=== PATIENT | male | born 1930 | race Caucasian/White ===

== ENCOUNTER 2018-06-28 11:42 | Inpatient (IN) ==
--- NOTE | 2018-06-28 11:58 | Emergency Department Note ---
Disposition Clinical Impression: Pancytopenia, Neutropenia, Weakness, Risk for falls Disposition: Admitted As Inpatient Condition: Fair Referrals: Scott Marcano MD [Partnered Physician] - Forms: ED Satisfaction Letter Time of Disposition: 18:24 General Adult HPI - General Chief complaint: ED Shortness of Breath/Dyspnea Stated complaint: Abnormal labs,TOMEKA Time Seen by Provider: 06/28/18 11:56 Nursing Notes Reviewed: Yes Vital Signs Reviewed: Yes - History of Present Illness HPI Narrative: 87-year-old male presents from oncology office for continued evaluation. Patient has been feeling progressively weak over the last 4 days. He now has profound dyspnea with ambulation. Mild dyspnea at rest. He aches from head to toe. Patient has had a 5-6 month history of falling white blood cell count. He had his first appointment with oncology this morning; his oncologist became concern for multiple possible etiologies and referred him to the emergency department for workup. PMH: Type 2 diabetes on oral anti-hyperglycemics, BPH, hypertension, hyperlipidemia, history of unstable angina with stent 2 ROS: Positive: As above. Subjective fever yesterday afternoon. Negative: Diaphoresis, chest pain, palpitations, abdominal pain, hematuria, melena, hematochezia, dysuria, hematemesis, cough Pain Scale: 8 - Related Data Home Medications Medication Instructions Recorded Confirmed Aspirin [Adult Low Dose Aspirin EC] 81 mg PO DAILY 02/27/16 06/28/18 Omeprazole [PriLOSEC] 40 mg PO DAILY 02/27/16 06/28/18 Simvastatin [Zocor] 40 mg PO HS 02/27/16 06/28/18 amLODIPine [Norvasc] 10 mg PO DAILY 02/27/16 06/28/18 glipiZIDE [Glipizide] 10 mg PO BID 02/27/16 06/28/18 metFORMIN [Glucophage] 1,000 mg PO QAM 02/27/16 06/28/18 Metoprolol Succinate [Toprol Xl] 50 mg PO DAILY 03/05/18 06/28/18 Nitroglycerin [Nitrostat] 0.4 mg SL DAILY 03/05/18 06/28/18 metFORMIN [Glucophage] 1,000 mg PO QPM 03/05/18 06/28/18 Isosorbide MONOnitrate [Isosorbide 30 mg PO DAILY 06/28/18 06/28/18 Mononitrate] Tamsulosin HCl [Flomax] 0.4 mg PO DAILY 06/28/18 06/28/18 Venlafaxine HCl 50 mg PO DAILY 06/28/18 06/28/18 metFORMIN [Glucophage] 500 mg PO QPM 06/28/18 06/28/18 Allergies Allergy/AdvReac Type Severity Reaction Status Date / Time Penicillins Allergy Hives Verified 06/28/18 12:14 All systems ED: reviewed and negative except as stated. Review of Systems: As Per HPI Past Medical History - Past Medical History Medical history: Reports: CVA, diabetes, GERD, hyperlipidemia, hypertension Psychiatric history: Reports: depression - Social History Smoking Status: Former smoker Smokeless Tobacco Status: No Alcohol use: Reports: rarely Drug use: Reports: none Physical Exam Vital Signs Reviewed General: Patient is alert, oriented, and in no acute distress. Head: atraumatic, normocephalic Eye: normal appearance, PERRL, EOMI, no scleral icterus, no conjunctival injection. Conjunctiva pale. Gingiva pale. ENT: mucous membranes moist, normal external ear exam Neck: normal inspection, trachea midline, full ROM Chest: normal inspection, symmetric chest rise Respiratory: Good respiratory effort. Bilateral breath sounds are clear without wheezing, crackles, or rhonchi. Cardiovascular: Regular rate and rhythm. No clicks, rubs, gallops, or murmors. Normal heart sounds. Bilateral posterior tibial and radial pulses 2/4 and equal. No pedal edema. Abdomen: Bowel sounds present normoactive x-4 quadrants. Abdomen is soft, nondistended, and nontender. No guarding or rebound. No organomegaly noted. Musculoskeletal: Spontaneously moving all extremities. Skin: warm, dry, intact. Neuro: Alert and oriented x4. Sensation light touch intact. Psych: Patient's affect is appropriate for situation. Course Course Narrative: Cardiac catheter 03/2018: Indications: Unstable Angina Impressions: Double vessel coronary artery disease. Previously stented RCA patent. The left ventricle is normal and has normal contractility EF 60% Recommendations: Optimal medical therapy of patient's disease. Aggressive risk factor modification. History/Risk Factors: anxiety depression gout BPH CVA 2014 Diabetes Hypertension Previous PCI EKG dated 06/28/2018 at 12:14 interpreted as atrial fibrillation with a rate of 102. Normal axis. FL 138. QTC 494. Nonspecific ST-T changes. Right bundle branch block. Compared to previous EKG dated 12/23/2016 showing no acute extremity changes in comparison. Patient is pancytopenic with white blood cell count of 1; absolute neutrophil count of 14. No current evidence of infection. Chest x-ray is unremarkable. Patient has no urinary complaints. He no preceding URI symptoms, no abdominal pain or change in bowel habits, and no fevers. Concern for blood dyscrasia is high given lack of infectious signs or symptoms as well as history of his white blood cell count dwindling for the past 6 months with no intervention by his primary care provider. Discussed the patient with credit and loan collections supervisor oncology who also discussed the patient with Dr. Loay, [facility]. We discussed the patient's pancytopenia and lack of evidence of infectious etiology. Cluster concern is a blood dyscrasia. Interventional radiology is not available on the weekend for bone marrow biopsy at this facility. Collectively, we do not wish for the patient to wait until Sunday for bone marrow biopsy. We agree the patient would best be served by transfer to a higher level facility with interventional radiology availability over the weekend for a more rapid bone marrow biopsy and diagnosis of his pancytopenia and low absolute neutrophil count. Discussed the patient with oncology fellow at [facility], Dr. Coyle. After discussing the patient's clinical picture and my workup thus far, patient would not be able to receive a bone marrow biopsy until Sunday at their facility either. We discussed additional appropriate studies to be ordered. We discussed the patient safely staying at this hospital with our oncology following. Discussed the patient with [facility], Dr. Loya. She also spoke with Dr. Coyle. She is agreeable to keeping the patient at this facility for valuation of his weakness and fall risk as well as continued evaluation of his pancytopenia. Discussed the patient with the admitting hospitalist, Dr. Loya, who agrees to accept the patient with oncology following. Chest X-Ray 06/28/18 12:23 IMPRESSION: Stable appearance of the chest without acute cardiopulmonary process identified. D/ / Coy Young MD / Coy Young MD Interpreting Provider: Coy Young MD Vital Signs Temperature 98.5 F 06/28/18 11:46 Pulse Rate 100 06/28/18 11:46 Respiratory Rate 16 06/28/18 11:46 Blood Pressure 131/75 06/28/18 11:46 O2 Sat by Pulse Oximetry 99 06/28/18 11:46 Temperature 98.5 F 06/28/18 12:20 Pulse Rate 102 06/28/18 14:11 Respiratory Rate 20 06/28/18 14:11 Blood Pressure 126/79 06/28/18 14:11 O2 Sat by Pulse Oximetry 95 06/28/18 14:11 Oxygen Delivery Oxygen Delivery Room Air Medical Decision Making - Lab Data Result diagrams: 06/28/18 13:45 06/28/18 12:29 Lab Results 06/28/18 06/28/18 06/28/18 Range/Units 12:29 12:29 12:29 WBC (4.3-11.1) K/mcL RBC (4.19-5.50) M/mcL Hgb (12.9-16.9) g/dL Hct (37.5-50.1) % MCV (83.0-100.0) fL MCH (28.0-33.3) pg MCHC (31.6-35.5) g/dL RDW (11.5-14.5) % Plt Count (140-400) K/mcL MPV (9.4-12.4) fL Reticulocyte # (0.05-0.10) M/mcL Immature Gran % (0-4) % Seg Neutrophils % % Lymphocytes % % Monocytes % % Eosinophils % % Basophils % % Neutrophils # (1.6-8.9) K/mcL Lymphocytes # (0.6-4.6) K/mcL Monocytes # (0.0-1.3) K/mcL Eosinophils # (0.0-0.6) K/mcL Basophils # (0.0-0.2) K/mcL Nucleated RBCs/100 WBC (0) /100 WBC Immature Plt Fraction (1.1-6.1) % Smear Path Review Percent Retic (1.6-2.8) % Immature Retic Fraction (11.0-38.0) % Retic Hgb Equivalent (28.61-36.33) pg PT (9.4-12.1) Seconds INR Sodium 131 L (136-145) mEq/L Potassium 4.0 (3.5-5.1) mEq/L Chloride 98 (98-107) mEq/L Carbon Dioxide 18 L (23-29) mEq/L BUN 15 (8-23) mg/dL Creatinine 0.91 (0.70-1.30) mg/dL Est GFR ( Amer) > 60 (> 60) Est GFR (Non-Af Amer) > 60 (> 60) BUN/Creatinine Ratio 16 (6-26) Glucose 257 H (70-105) mg/dL Calculated Osmolality 282 (280-300) Lactic Acid 1.8 (0.5-2.2) mmol/L Uric Acid 6.0 (2.3-7.6) mg/dL Calcium 9.3 (8.6-10.3) mg/dL Total Bilirubin 1.1 H (0.3-1.0) mg/dL Direct Bilirubin 0.2 (0.0-0.2) mg/dL Indirect Bilirubin 0.9 (0.0-1.2) mg/dL AST 14 (13-39) Units/L ALT 13 (7-52) Units/L Alkaline Phosphatase 42 (34-104) Units/L Lactate Dehydrogenase (140-271) Units/L Troponin I < 0.03 (< 0.04) ng/mL B-Natriuretic Peptide 159 H (Less than 100) pg/mL Serum Total Protein 7.4 (6.4-8.9) g/dL Albumin 4.0 (3.5-5.7) g/dL Globulin 3.4 (2.4-3.5) g/dL Albumin/Globulin Ratio 1.2 (1.1-2.2) Specimen Rejected 06/28/18 06/28/18 06/28/18 Range/Units 13:27 13:45 17:35 WBC 1.0 L* (4.3-11.1) K/mcL RBC 2.86 L (4.19-5.50) M/mcL Hgb 9.3 L (12.9-16.9) g/dL Hct 27.8 L (37.5-50.1) % MCV 97.2 (83.0-100.0) fL MCH 32.5 (28.0-33.3) pg MCHC 33.5 (31.6-35.5) g/dL RDW 18.1 H (11.5-14.5) % Plt Count 83 L (140-400) K/mcL MPV 10.7 (9.4-12.4) fL Reticulocyte # (0.05-0.10) M/mcL Immature Gran % 1.0 (0-4) % Seg Neutrophils % 43.1 % Lymphocytes % 49.0 % Monocytes % 6.9 % Eosinophils % 0.0 % Basophils % 0.0 % Neutrophils # 0.4 L (1.6-8.9) K/mcL Lymphocytes # 0.5 L (0.6-4.6) K/mcL Monocytes # 0.1 (0.0-1.3) K/mcL Eosinophils # 0.0 (0.0-0.6) K/mcL Basophils # 0.0 (0.0-0.2) K/mcL Nucleated RBCs/100 WBC 2.0 H (0) /100 WBC Immature Plt Fraction 4.4 (1.1-6.1) % Smear Path Review See Below Percent Retic (1.6-2.8) % Immature Retic Fraction (11.0-38.0) % Retic Hgb Equivalent (28.61-36.33) pg PT 16.1 H (9.4-12.1) Seconds INR 1.4 Sodium (136-145) mEq/L Potassium (3.5-5.1) mEq/L Chloride (98-107) mEq/L Carbon Dioxide (23-29) mEq/L BUN (8-23) mg/dL Creatinine (0.70-1.30) mg/dL Est GFR ( Amer) (> 60) Est GFR (Non-Af Amer) (> 60) BUN/Creatinine Ratio (6-26) Glucose (70-105) mg/dL Calculated Osmolality (280-300) Lactic Acid (0.5-2.2) mmol/L Uric Acid (2.3-7.6) mg/dL Calcium (8.6-10.3) mg/dL Total Bilirubin (0.3-1.0) mg/dL Direct Bilirubin (0.0-0.2) mg/dL Indirect Bilirubin (0.0-1.2) mg/dL AST (13-39) Units/L ALT (7-52) Units/L Alkaline Phosphatase (34-104) Units/L Lactate Dehydrogenase (140-271) Units/L Troponin I (< 0.04) ng/mL B-Natriuretic Peptide (Less than 100) pg/mL Serum Total Protein (6.4-8.9) g/dL Albumin (3.5-5.7) g/dL Globulin (2.4-3.5) g/dL Albumin/Globulin Ratio (1.1-2.2) Specimen Rejected Clotted 06/28/18 06/28/18 Range/Units 17:35 17:35 WBC (4.3-11.1) K/mcL RBC (4.19-5.50) M/mcL Hgb (12.9-16.9) g/dL Hct (37.5-50.1) % MCV (83.0-100.0) fL MCH (28.0-33.3) pg MCHC (31.6-35.5) g/dL RDW (11.5-14.5) % Plt Count (140-400) K/mcL MPV (9.4-12.4) fL Reticulocyte # 0.08 (0.05-0.10) M/mcL Immature Gran % (0-4) % Seg Neutrophils % % Lymphocytes % % Monocytes % % Eosinophils % % Basophils % % Neutrophils # (1.6-8.9) K/mcL Lymphocytes # (0.6-4.6) K/mcL Monocytes # (0.0-1.3) K/mcL Eosinophils # (0.0-0.6) K/mcL Basophils # (0.0-0.2) K/mcL Nucleated RBCs/100 WBC (0) /100 WBC Immature Plt Fraction (1.1-6.1) % Smear Path Review Percent Retic 2.8 (1.6-2.8) % Immature Retic Fraction 28.2 (11.0-38.0) % Retic Hgb Equivalent 35.3 (28.61-36.33) pg PT (9.4-12.1) Seconds INR Sodium (136-145) mEq/L Potassium (3.5-5.1) mEq/L Chloride (98-107) mEq/L Carbon Dioxide (23-29) mEq/L BUN (8-23) mg/dL Creatinine (0.70-1.30) mg/dL Est GFR ( Amer) (> 60) Est GFR (Non-Af Amer) (> 60) BUN/Creatinine Ratio (6-26) Glucose (70-105) mg/dL Calculated Osmolality (280-300) Lactic Acid (0.5-2.2) mmol/L Uric Acid (2.3-7.6) mg/dL Calcium (8.6-10.3) mg/dL Total Bilirubin (0.3-1.0) mg/dL Direct Bilirubin (0.0-0.2) mg/dL Indirect Bilirubin (0.0-1.2) mg/dL AST (13-39) Units/L ALT (7-52) Units/L Alkaline Phosphatase (34-104) Units/L Lactate Dehydrogenase 260 (140-271) Units/L Troponin I (< 0.04) ng/mL B-Natriuretic Peptide (Less than 100) pg/mL Serum Total Protein (6.4-8.9) g/dL Albumin (3.5-5.7) g/dL Globulin (2.4-3.5) g/dL Albumin/Globulin Ratio (1.1-2.2) Specimen Rejected
--- NOTE | 2018-06-28 13:23 | Emergency Department Note ---
Disposition Clinical Impression: Pancytopenia, Neutropenia, Weakness, Risk for falls Disposition: Admitted As Inpatient Condition: Fair Referrals: Scott Marcano MD [Partnered Physician] - Forms: ED Satisfaction Letter General Adult HPI - General Chief complaint: ED Shortness of Breath/Dyspnea Stated complaint: Abnormal labs,TOMEKA Time Seen by Provider: 06/28/18 11:56 Source: patient Limitations: no limitations - History of Present Illness Pain Scale: 8 - Related Data Home Medications Medication Instructions Recorded Confirmed Aspirin [Adult Low Dose Aspirin EC] 81 mg PO DAILY 02/27/16 06/28/18 Omeprazole [PriLOSEC] 40 mg PO DAILY 02/27/16 06/28/18 Simvastatin [Zocor] 40 mg PO HS 02/27/16 06/28/18 amLODIPine [Norvasc] 10 mg PO DAILY 02/27/16 06/28/18 glipiZIDE [Glipizide] 10 mg PO BID 02/27/16 06/28/18 metFORMIN [Glucophage] 1,000 mg PO QAM 02/27/16 06/28/18 Metoprolol Succinate [Toprol Xl] 50 mg PO DAILY 03/05/18 06/28/18 Nitroglycerin [Nitrostat] 0.4 mg SL DAILY 03/05/18 06/28/18 metFORMIN [Glucophage] 1,000 mg PO QPM 03/05/18 06/28/18 Isosorbide MONOnitrate [Isosorbide 30 mg PO DAILY 06/28/18 06/28/18 Mononitrate] Tamsulosin HCl [Flomax] 0.4 mg PO DAILY 06/28/18 06/28/18 Venlafaxine HCl 50 mg PO DAILY 06/28/18 06/28/18 metFORMIN [Glucophage] 500 mg PO QPM 06/28/18 06/28/18 Allergies Allergy/AdvReac Type Severity Reaction Status Date / Time Penicillins Allergy Hives Verified 06/28/18 12:14 Past Medical History - Past Medical History Medical history: Reports: CVA, diabetes, GERD, hyperlipidemia, hypertension Psychiatric history: Reports: depression - Social History Smoking Status: Former smoker Smokeless Tobacco Status: No Alcohol use: Reports: rarely Drug use: Reports: none Physical Exam - General Limitations: no limitations General appearance: alert Course Vital Signs Temperature 98.5 F 06/28/18 11:46 Pulse Rate 100 06/28/18 11:46 Respiratory Rate 16 06/28/18 11:46 Blood Pressure 131/75 06/28/18 11:46 O2 Sat by Pulse Oximetry 99 06/28/18 11:46 Temperature 98.5 F 06/28/18 12:20 Pulse Rate 102 06/28/18 14:11 Respiratory Rate 20 06/28/18 14:11 Blood Pressure 126/79 06/28/18 14:11 O2 Sat by Pulse Oximetry 95 06/28/18 14:11 Oxygen Delivery Oxygen Delivery Room Air Medical Decision Making - Lab Data Result diagrams: 06/28/18 13:45 06/28/18 12:29 Lab Results 06/28/18 06/28/18 06/28/18 Range/Units 12:29 12:29 12:29 WBC (4.3-11.1) K/mcL RBC (4.19-5.50) M/mcL Hgb (12.9-16.9) g/dL Hct (37.5-50.1) % MCV (83.0-100.0) fL MCH (28.0-33.3) pg MCHC (31.6-35.5) g/dL RDW (11.5-14.5) % Plt Count (140-400) K/mcL MPV (9.4-12.4) fL Reticulocyte # (0.05-0.10) M/mcL Immature Gran % (0-4) % Seg Neutrophils % % Lymphocytes % % Monocytes % % Eosinophils % % Basophils % % Neutrophils # (1.6-8.9) K/mcL Lymphocytes # (0.6-4.6) K/mcL Monocytes # (0.0-1.3) K/mcL Eosinophils # (0.0-0.6) K/mcL Basophils # (0.0-0.2) K/mcL Nucleated RBCs/100 WBC (0) /100 WBC Immature Plt Fraction (1.1-6.1) % Smear Path Review Percent Retic (1.6-2.8) % Immature Retic Fraction (11.0-38.0) % Retic Hgb Equivalent (28.61-36.33) pg PT (9.4-12.1) Seconds INR Sodium 131 L (136-145) mEq/L Potassium 4.0 (3.5-5.1) mEq/L Chloride 98 (98-107) mEq/L Carbon Dioxide 18 L (23-29) mEq/L BUN 15 (8-23) mg/dL Creatinine 0.91 (0.70-1.30) mg/dL Est GFR ( Amer) > 60 (> 60) Est GFR (Non-Af Amer) > 60 (> 60) BUN/Creatinine Ratio 16 (6-26) Glucose 257 H (70-105) mg/dL Calculated Osmolality 282 (280-300) Lactic Acid 1.8 (0.5-2.2) mmol/L Uric Acid 6.0 (2.3-7.6) mg/dL Calcium 9.3 (8.6-10.3) mg/dL Total Bilirubin 1.1 H (0.3-1.0) mg/dL Direct Bilirubin 0.2 (0.0-0.2) mg/dL Indirect Bilirubin 0.9 (0.0-1.2) mg/dL AST 14 (13-39) Units/L ALT 13 (7-52) Units/L Alkaline Phosphatase 42 (34-104) Units/L Troponin I < 0.03 (< 0.04) ng/mL B-Natriuretic Peptide 159 H (Less than 100) pg/mL Serum Total Protein 7.4 (6.4-8.9) g/dL Albumin 4.0 (3.5-5.7) g/dL Globulin 3.4 (2.4-3.5) g/dL Albumin/Globulin Ratio 1.2 (1.1-2.2) Specimen Rejected 06/28/18 06/28/18 06/28/18 Range/Units 13:27 13:45 17:35 WBC 1.0 L* (4.3-11.1) K/mcL RBC 2.86 L (4.19-5.50) M/mcL Hgb 9.3 L (12.9-16.9) g/dL Hct 27.8 L (37.5-50.1) % MCV 97.2 (83.0-100.0) fL MCH 32.5 (28.0-33.3) pg MCHC 33.5 (31.6-35.5) g/dL RDW 18.1 H (11.5-14.5) % Plt Count 83 L (140-400) K/mcL MPV 10.7 (9.4-12.4) fL Reticulocyte # (0.05-0.10) M/mcL Immature Gran % 1.0 (0-4) % Seg Neutrophils % 43.1 % Lymphocytes % 49.0 % Monocytes % 6.9 % Eosinophils % 0.0 % Basophils % 0.0 % Neutrophils # 0.4 L (1.6-8.9) K/mcL Lymphocytes # 0.5 L (0.6-4.6) K/mcL Monocytes # 0.1 (0.0-1.3) K/mcL Eosinophils # 0.0 (0.0-0.6) K/mcL Basophils # 0.0 (0.0-0.2) K/mcL Nucleated RBCs/100 WBC 2.0 H (0) /100 WBC Immature Plt Fraction 4.4 (1.1-6.1) % Smear Path Review See Below Percent Retic (1.6-2.8) % Immature Retic Fraction (11.0-38.0) % Retic Hgb Equivalent (28.61-36.33) pg PT 16.1 H (9.4-12.1) Seconds INR 1.4 Sodium (136-145) mEq/L Potassium (3.5-5.1) mEq/L Chloride (98-107) mEq/L Carbon Dioxide (23-29) mEq/L BUN (8-23) mg/dL Creatinine (0.70-1.30) mg/dL Est GFR ( Amer) (> 60) Est GFR (Non-Af Amer) (> 60) BUN/Creatinine Ratio (6-26) Glucose (70-105) mg/dL Calculated Osmolality (280-300) Lactic Acid (0.5-2.2) mmol/L Uric Acid (2.3-7.6) mg/dL Calcium (8.6-10.3) mg/dL Total Bilirubin (0.3-1.0) mg/dL Direct Bilirubin (0.0-0.2) mg/dL Indirect Bilirubin (0.0-1.2) mg/dL AST (13-39) Units/L ALT (7-52) Units/L Alkaline Phosphatase (34-104) Units/L Troponin I (< 0.04) ng/mL B-Natriuretic Peptide (Less than 100) pg/mL Serum Total Protein (6.4-8.9) g/dL Albumin (3.5-5.7) g/dL Globulin (2.4-3.5) g/dL Albumin/Globulin Ratio (1.1-2.2) Specimen Rejected Clotted 06/28/18 Range/Units 17:35 WBC (4.3-11.1) K/mcL RBC (4.19-5.50) M/mcL Hgb (12.9-16.9) g/dL Hct (37.5-50.1) % MCV (83.0-100.0) fL MCH (28.0-33.3) pg MCHC (31.6-35.5) g/dL RDW (11.5-14.5) % Plt Count (140-400) K/mcL MPV (9.4-12.4) fL Reticulocyte # 0.08 (0.05-0.10) M/mcL Immature Gran % (0-4) % Seg Neutrophils % % Lymphocytes % % Monocytes % % Eosinophils % % Basophils % % Neutrophils # (1.6-8.9) K/mcL Lymphocytes # (0.6-4.6) K/mcL Monocytes # (0.0-1.3) K/mcL Eosinophils # (0.0-0.6) K/mcL Basophils # (0.0-0.2) K/mcL Nucleated RBCs/100 WBC (0) /100 WBC Immature Plt Fraction (1.1-6.1) % Smear Path Review Percent Retic 2.8 (1.6-2.8) % Immature Retic Fraction 28.2 (11.0-38.0) % Retic Hgb Equivalent 35.3 (28.61-36.33) pg PT (9.4-12.1) Seconds INR Sodium (136-145) mEq/L Potassium (3.5-5.1) mEq/L Chloride (98-107) mEq/L Carbon Dioxide (23-29) mEq/L BUN (8-23) mg/dL Creatinine (0.70-1.30) mg/dL Est GFR ( Amer) (> 60) Est GFR (Non-Af Amer) (> 60) BUN/Creatinine Ratio (6-26) Glucose (70-105) mg/dL Calculated Osmolality (280-300) Lactic Acid (0.5-2.2) mmol/L Uric Acid (2.3-7.6) mg/dL Calcium (8.6-10.3) mg/dL Total Bilirubin (0.3-1.0) mg/dL Direct Bilirubin (0.0-0.2) mg/dL Indirect Bilirubin (0.0-1.2) mg/dL AST (13-39) Units/L ALT (7-52) Units/L Alkaline Phosphatase (34-104) Units/L Troponin I (< 0.04) ng/mL B-Natriuretic Peptide (Less than 100) pg/mL Serum Total Protein (6.4-8.9) g/dL Albumin (3.5-5.7) g/dL Globulin (2.4-3.5) g/dL Albumin/Globulin Ratio (1.1-2.2) Specimen Rejected Critical Care Time Critical Care Time: No Attestation Statement - Attestation Attestation: I examined this patient and my medical decision-making was reviewed with the Resident Physician. I agree with the documented findings, disposition and treatment plan as described except to the extent set forth below. 87-year-old male got sent to the emergency room from hematology office for shortness of breath and diffuse myalgias and arthralgias and pancytopenia. Patient is been feeling ill for a while. Getting more and more short of breath. Was told his white blood cell count was 1. He denies any blood in his stool. He does appear pale and weak. We did call hematology who preferred the patient be admitted for further workup of pancytopenia and a consult to them. Patient was also recently diagnosed with COPD and emphysema which could be contributing to his sob will recheck labs admit [facility] does not feel he needs to be tx'd there as they can't do a bone marrow biopsy until sunday either. will attempt to readmit here. 1) pancytopenia--needs hematologic work up 2)copd--needs followed no critical care time
[2018-06-28 13:34] LABS: Troponin I < 0.03 ng/mL (< 0.04)
[2018-06-28 14:27] LABS: Alanine Aminotransferase 13 Units/L (7-52); Albumin/Globulin Ratio 1.2 (1.1-2.2); Alkaline Phosphatase 42 Units/L (34-104); Aspartate Amino Transferase 14 Units/L (13-39); BUN/Creatinine Ratio 16 (6-26); Bilirubin,Direct 0.2 mg/dL (0.0-0.2); Bilirubin,Indirect 0.9 mg/dL (0.0-1.2); Bilirubin,Total 1.1 mg/dL (0.3-1.0); Blood Urea Nitrogen 15 mg/dL (8-23); Calcium 9.3 mg/dL (8.6-10.3); Carbon Dioxide 18 mEq/L (23-29); Chloride 98 mEq/L (98-107); Globulin 3.4 g/dL (2.4-3.5); Glucose 257 mg/dL (70-105); Osmolality,Calculated 282 (280-300); Sodium 131 mEq/L (136-145); Total Protein 7.4 g/dL (6.4-8.9); eGFR For Non-African Americans > 60 (> 60)
[2018-06-28 15:05] LABS: Hematocrit 27.8 % (37.5-50.1); Hemoglobin 9.3 g/dL (12.9-16.9); Immature Platelets 4.4 % (1.1-6.1); Lymphocytes # 0.5 K/mcL (0.6-4.6); Mean Corpuscular HGB Conc 33.5 g/dL (31.6-35.5); Mean Corpuscular Hemoglobin 32.5 pg (28.0-33.3); Mean Corpuscular Volume 97.2 fL (83.0-100.0); Mean Platelet Volume 10.7 fL (9.4-12.4); Monocytes # 0.1 K/mcL (0.0-1.3); Monocytes % 6.9 %; Neutrophils # 0.4 K/mcL (1.6-8.9); Red Blood Count 2.86 M/mcL (4.19-5.50); Red Cell Distribution Width 18.1 % (11.5-14.5); Segmented Neutrophils % 43.1 %
[2018-06-28 15:32] LABS: Platelet Count 83 K/mcL (140-400)
[2018-06-28 17:56] LABS: Immature Reticulocyte % 28.2 % (11.0-38.0); Retculocyte # 0.08 M/mcL (0.05-0.10); Reticulocyte % 2.8 % (1.6-2.8)
[2018-06-28 18:00] LABS: INR 1.4; Prothrombin Time 16.1 Seconds (9.4-12.1)
[2018-06-28 18:21] LABS: Lactate Dehydrogenase 260 Units/L (140-271)
[2018-06-28 18:39] LABS: Ferritin 522 ng/mL (20-250)
[2018-06-28] MEDS ORDERED: 0.9 % Sodium Chloride 1,000 ML IVC ONE ×2 (19:45→21:43)
[2018-06-28] MEDS ORDERED: Naloxone 0.4 MG/ML INJ IVP PRN (20:13)
[2018-06-28] MEDS ORDERED: D5% in Water 1,000 ML IVC PRN (20:19)
[2018-06-28] MEDS ORDERED: *HR* Dextrose 50 % in Water (Syg) 50 ML SYRINGE IVP PRN (20:19)
[2018-06-28] MEDS ORDERED: Dextrose Gel 15 GM/37.5 ML TUBE PO PRN ×2 (20:19)
--- NOTE | 2018-06-28 20:29 | Internal Med History&Physical ---
<Renato Bustos - Last Filed: 06/28/18 22:25> Date of Encounter: 06/28/18 Time of Encounter: 20:29 Internal Medicine - H&P: HPI Chief complaint: sent from onc, SOB Admitted From: Emergency Dept Plans for Post Hospital Care: Home History of present illness: Mr. Harris is a 87 year old male with past medical history of CVA, diabetes, GERD , hypertension, hyperlipidemia, hypertension, depression who presents to emergency department from oncology office with complaint of pancytopenia as well as progressive shortness of breath. Patient states that his symptoms of weakness and shortness of breath present for approximately past 4 weeks. They have been getting progressively worse. SOB exacerbated with exertion and partially relieved with rest. He is also been having a workup with his primary care physician since February of this year. There was his first visit with the oncologist who recommended he presented to emergency department due to shortness of breath and pancytopenia. He states he has been feeling feverish and chills over the past 24 hours but denies any symptoms of cough, congestion, runny nose, abdominal pain, changes in bowel movements, dysuria. He has not been measuring these fevers. He does have also have complaints of nausea, urinary frequency however he does think this is related to his BPH. Denies symptoms of orthopnea and states he has very minimal lower extremity swelling bilaterally. He does state he has occasional anginal chest pain however he is not having it at this time. He does state that he has had an EGD and colonoscopy performed in the past. EGD was multiple years ago and he reports negative findings. Colonoscopy performed last year he reportedly found upwards of 60 polyps that were removed and reports complication of rectal prolapse. In the emergency department, vital signs on presentation significant for heart rate of 100, blood pressure 131/75 he was saturating 99% on room air. It is noted however that during his stay he became increasingly tachycardic with a rate reaching the 130s and his respiratory rate also increased to the high 20s. It was noted that his oxygen saturation maintained in the mid 90s. At that time a 1 L bolus of normal saline was initiated. Laboratory results were significant for a WBC of 1.0, H/H of 9.3/27.8, platelets 83, blood sugar 257, lactic acid 1.8. Chest x-ray was obtained and was negative for acute process. Originally, patient was considering transferring to [facility] for need of a bone biopsy however [facility] stated that a bone biopsy would not likely be performed until Sunday at which time it can be done here. Oncology was consult emergency department and will see the patient in the morning. Past medical history as above Past surgical history includes orthopedic Social history: Former smoker quitting 60 years ago, denies alcohol or drug use Family history: Skin for cardiac disease in his father as well as lung cancer for which he eventually passed. Past Med Surg Social Fam HX - Past Medical History Medical history: CVA, diabetes, GERD, hyperlipidemia, hypertension Additional medical history: leukopenia Psychiatric history: depression - Past Surgical History Additional surgical history: laminectomy. hemorrhoidectomy. tonsillectomy. right heel spur removal. heart stents x2 - Social History Smoking Status: Former smoker Smokeless Tobacco Status: No Alcohol use: rarely Drug use: none Internal Medicine - H&P: Meds Aspirin [Adult Low Dose Aspirin EC] 81 mg PO DAILY 02/27/16 [History] Omeprazole [PriLOSEC] 40 mg PO DAILY 02/27/16 [History] Simvastatin [Zocor] 40 mg PO HS 02/27/16 [History] amLODIPine [Norvasc] 10 mg PO DAILY 02/27/16 [History] metFORMIN [Glucophage] 1,000 mg PO QAM 02/27/16 [History] Metoprolol Succinate [Toprol Xl] 50 mg PO DAILY 03/05/18 [History] Nitroglycerin [Nitrostat] 0.4 mg SL DAILY 03/05/18 [History] metFORMIN [Glucophage] 1,000 mg PO HS 03/05/18 [History] GlipiZIDE [Glipizide ER] 10 mg PO BID 06/28/18 [History] Isosorbide MONOnitrate [Isosorbide Mononitrate] 30 mg PO DAILY 06/28/18 [History ] Tamsulosin HCl [Flomax] 0.4 mg PO DAILY 06/28/18 [History] Venlafaxine HCl 50 mg PO DAILY 06/28/18 [History] metFORMIN [Glucophage] 500 mg PO 1200 06/28/18 [History] 3 Allergy/AdvReac Type Severity Reaction Status Date / Time Penicillins Allergy Hives Verified 06/28/18 12:14 All Systems PM: A 10-system review of systems was performed and is negative for pertinent findings except as documented above in the HPI. Review of systems: - Constitutional: Admits to fevers, chills, fatigue Denies weight loss - EENT: Denies rhinorrhea, congestion, sore throat. Admits to reflux - CVS: Admits to lower extremity edema Denies chest pain, palpitations, ARAUJO, orthopnea, PND, - Pulm: Admits to shortness of breath Denies cough, sputum, hematemesis, wheezing - GI: Admits to nausea without vomiting Denies abdominal pain, anorexia, vomiting, diarrhea, constipation, melena - : increased frequency Denies dysuria, urgency, hematuria, - Skin: Denies rashes, ulcers, color changes, - Neuro: Denies CLARK, paresthesias, focal deficits, ataxia, numbness, tingling - Constitutional Vitals: Temp Pulse Resp BP Pulse Ox 100.3 F H 120 16 161/75 91 06/28/18 20:06 06/28/18 20:06 06/28/18 20:06 06/28/18 20:06 06/28/18 20:06 Exam: Gen.: Vitals noted. No acute distress. AAOx3. Resting comfortably in bed HEENT: PERRL/EOMI, oropharynx clear, Normocephalic, atraumatic, dry mucous membranes Cardiac: Tachycardic rate, regular rhythm, no murmur, +S1/S2 Pulmonary: Very mild crackles in bilateral lung bases, equal chest expansion Abdomen: soft, nontender, BS noted, no guarding, no rebound. Extremities: Minimal BLE edema, nontender calf, no cyanosis or clubbing : Incontinent of urine Neuro: A&Ox3, moves all extremities, no focal deficits Psych: Appropriate mood and behavior Skin: Mildly warm to palpation on the posterior surface Internal Med - H&P Results - Labs CBC & Chem 7: 06/28/18 13:45 06/28/18 12:29 - Assessment and plan (1) Neutropenic fever Current Visit: Yes Status: Suspected Assessment and plan: - Elevated Temp in setting of Neutropenia (100.3). Subjective fevers at home - Neutrophil count 0.4, WBC 1.0. Lactic acid 1.8 - Neutropenia of unclear etiology, consider MDS - Tachycardic, tachypneic in ED. - Fever present in Oncologist office - Patient does report feeling feverish with chills - CXR in ED shows no acute process, however patient is dry on exam. - No obvious source of infection at this time. Possibly urine vs respiratory etiology Plan - Empiric broad spectrums initiated of cefepime, vancomycin, levaquin - Blood cultures drawn, pending results - Oncology consulted in ED - Tylenol PRN fever (2) Pancytopenia Current Visit: Yes Status: Acute Assessment and plan: Pancytopenia - WBC 1.0; H/H of 9.3/27.8, plt 83, neutrophils 0.4, lymphocytes 0.5 - Oncology consulted, will see patient in the morning - Likely to receive BM biopsy of AM to determine etiology. No IR coverage over weekend Plan - Will cover with broad spectrums at this time in the setting of elevated temp - No s/s of active bleed at this time. Continue heparin for DVT prophylaxis - Continue to trend with daily CBC (3) Sepsis Current Visit: Yes Status: Acute Assessment and plan: Sepsis without elevated lactic acid (1.8) - Pt tachycardic, tachypnic, with WBC 1.0 - elevated temp of 100.3 with report of recent fevers/chills - 1L normal saline bolus given in ED; will continue fluid resuscitation. Additional 1L bolus with maintenance following. Plan - Possible respiratory source of infection, though CXR normal at this time - Vanc, Cefepime, Levaquin empirically - continue to monitor - UA pending. - Repeat lactic acid pending. Qualifiers: Sepsis type: sepsis due to unspecified organism Qualified Code(s): A41.9 - Sepsis, unspecified organism (4) Diabetes mellitus Current Visit: Yes Status: Chronic Assessment and plan: Known History of DM - Accuchecks and Sliding Scale Insulin ordered - POC glucose 257 in ED Qualifiers: Diabetes mellitus type: type 2 Diabetes mellitus group home insulin use: without group home use Diabetes mellitus complication status: without complication Qualified Code(s): E11.9 - Type 2 diabetes mellitus without complications (5) Hypertension Current Visit: Yes Status: Chronic Assessment and plan: Known History of Hypertension - Will continue home meds - Last BP 161/75 - Continue to Monitor Qualifiers: Hypertension type: essential hypertension Qualified Code(s): I10 - Essential (primary) hypertension (6) Hyperlipidemia Current Visit: Yes Status: Chronic Assessment and plan: Known History of Hyperlipidemia - Continue home meds Qualifiers: Hyperlipidemia type: unspecified Qualified Code(s): E78.5 - Hyperlipidemia , unspecified (7) GERD (gastroesophageal reflux disease) Current Visit: Yes Status: Chronic Assessment and plan: Known History of GERD - Continue home meds Qualifiers: Esophagitis presence: esophagitis presence not specified Qualified Code(s) : K21.9 - Gastro-esophageal reflux disease without esophagitis (8) Weakness Current Visit: Yes Status: Acute Assessment and plan: -Likely secondary to anemia vs infectious etiology - Management as above -Will monitor for any changes (9) DVT prophylaxis Current Visit: Yes Status: Acute Assessment and plan: Heparin SQ for Prophylaxis (10) Dyspnea Current Visit: Yes Status: Acute Assessment and plan: Progressively worsening dyspnea for 4 wks duration - Likely secondary to anemia in the setting of pancytopenia - History of mild HFpEF. Most recent Echo 2017. BNP in 100s. Low suspicion for CHF at this time - Cannot rule out respiratory infection at this time - Continue to monitor - Currently tolerating room air Qualifiers: Dyspnea type: shortness of breath Qualified Code(s): R06.02 - Shortness of breath; R06.00 - Dyspnea, unspecified; R06.01 - Orthopnea - Time Spent With Patient Total time spent is greater than 50% in coordination of care (as documented) at patient's floor/unit and/or counseling patient: <Ricardo Moya - Last Filed: 06/28/18 23:27> Date of Encounter: 06/28/18 Time of Encounter: 23:18 Past Med Surg Social Fam HX - Family History Mother Living Status: Father Living Status: - Additional Family History Additional family history: No FH of blood dyscrasias; leukemia per patient - Constitutional Constitutional: fatigue, fever(s), malaise, no chills, no night sweats - EENT Eyes: no blurry vision, no change in vision Ears: no ear pain, no tinnitus Nose, mouth and throat: no nasal congestion, no nasal discharge, no sore throat - Cardiovascular Cardiovascular ROS IM: dyspnea, dyspnea on exertion, no chest pain, no syncope - Respiratory Respiratory: dyspnea, dyspnea on exertion, no cough, no hemoptysis, no chest congestion, no excessive phlegm production, no change in phlegm color, no pain with cough - Gastrointestinal Gastrointestinal: early satiety, nausea, no diarrhea, no hematemesis, no hematochezia, no melena, no vomiting - Genitourinary Genitourinary ROS male: nocturia, no flank pain, no hematuria - Musculoskeletal Musculoskeletal ROS IM: no arthralgias, no myalgias - Integumentary Integumentary IM: no rash, no jaundice - Neurological Neurological ROS: no dizziness, no focal weakness, no frequent falls, no headache(s) - Psychiatric Psychiatric: no anxiety, no depression - Endocrine Endocrine IM: no polydipsia, no polyuria - Hematologic/Lymphatic Hematologic/Lymphatic: easy bruising - Allergic/Immunologic Allergic/Immunologic: no wheezing, no GI upset with certain foods - Constitutional Vitals: Temp Pulse Resp BP Pulse Ox 98.8 F 96 21 119/59 97 06/28/18 22:25 06/28/18 22:25 06/28/18 22:25 06/28/18 22:25 06/28/18 22:25 General appearance: Present: cooperative, A&O X 3, pleasant, no acute distress - Head Head exam: Present: normal inspection - Eye Eye exam: Present: EOMI, PERRL. Absent: scleral icterus - ENT ENT exam: Present: mucous membranes dry, normal exam, normal oropharynx - Neck Neck exam general surgery: Present: full ROM, supple. Absent: lymphadenopathy - Respiratory Respiratory exam: Present: CTAB. Absent: chest wall tenderness, rales, respiratory distress, rhonchi, wheezes - Cardiovascular Cardiovascular exam: Present: irregular rhythm, +S1, +S2. Absent: diastolic murmur, systolic murmur - GI/Abdominal GI/Abdominal exam: Present: normal bowel sounds, soft. Absent: hepatomegaly, mass, splenomegaly, tenderness - Extremities Exam Extremities exam: Present: warm, radial pulses palpable and symmetrical. Absent : calf tenderness, joint swelling, pedal edema, tenderness - Neurological Exam Neurological exam: Present: CN II-XII intact, no focal deficits - Psychiatric Psychiatric exam: Present: normal affect, normal mood - Skin Skin exam: Present: dry, warm. Absent: rash Internal Med - H&P Results - Labs CBC & Chem 7: 06/28/18 13:45 06/28/18 12:29 - Assessment and plan (1) Pancytopenia Current Visit: Yes Status: Acute (2) Weakness Current Visit: Yes Status: Acute (3) DVT prophylaxis Current Visit: Yes Status: Acute (4) Sepsis Current Visit: Yes Status: Acute Qualifiers: Sepsis type: sepsis due to unspecified organism Qualified Code(s): A41.9 - Sepsis, unspecified organism (5) Diabetes mellitus Current Visit: Yes Status: Chronic Qualifiers: Diabetes mellitus type: type 2 Diabetes mellitus rn long term care insulin use: without group home use Diabetes mellitus complication status: without complication Qualified Code(s): E11.9 - Type 2 diabetes mellitus without complications (6) Hypertension Current Visit: Yes Status: Chronic Qualifiers: Hypertension type: essential hypertension Qualified Code(s): I10 - Essential (primary) hypertension (7) Hyperlipidemia Current Visit: Yes Status: Chronic Qualifiers: Hyperlipidemia type: unspecified Qualified Code(s): E78.5 - Hyperlipidemia , unspecified (8) GERD (gastroesophageal reflux disease) Current Visit: Yes Status: Chronic Qualifiers: Esophagitis presence: esophagitis presence not specified Qualified Code(s) : K21.9 - Gastro-esophageal reflux disease without esophagitis (9) Neutropenic fever Current Visit: Yes Status: Suspected (10) Dyspnea Current Visit: Yes Status: Acute Qualifiers: Dyspnea type: shortness of breath Qualified Code(s): R06.02 - Shortness of breath; R06.00 - Dyspnea, unspecified; R06.01 - Orthopnea - Time Spent With Patient Total time spent is greater than 50% in coordination of care (as documented) at patient's floor/unit and/or counseling patient: - Attending Attestation I discussed the [place], past medical history, review of systems, lab data, and exam findings with Dr. Bustos. I then saw and assessed and examined patient independently. He appears in no acute distress and is pleasant and comfortable. He does complain of some mild subjective fevers the last few days , worsening fatigue, and generalized weakness for the last few weeks, and appetite loss. He denies any bone pain or muscle aches. He denies any cough, congestion, vomiting, or diarrhea. He has had no difficulty urinating other than his normal prostate issues he has had chronically. I reviewed his labs and his history with both patient and with Dr. Bustos. Given his low- grade fever, pancytopenia, and clinical parameters suggesting possible sepsis, I agree with the plan of care with IV fluid hydration, IV antibiotics, and treating for possible sepsis. Clinically, he does not appear to be septic at this time, however. Nonetheless, we will proceed with the current course this evening and proceed with workup for pancytopenia, most concerning for possible acute leukemia. Oncology has already seen patient in office today and sent him to the ER for admission. We will consult them for assistance and guidance regarding further workup. Ultimately, patient will need a bone marrow biopsy to be coordinated with oncology. I discussed this with patient at length, and he voiced understanding. Other than my comments above and noted exam findings, I agree with Dr. Bustos.
[2018-06-28] MEDS: Insulin LISPRO 300 UNITS/3 ML VIAL SQ SCH (22:04)
[2018-06-28] MEDS: 0.9 % Sodium Chloride 1,000 ML IVC SCH (23:58)
[2018-06-29] MEDS: Cefepime HCl 2,000 MG in Water for inj. (sterile) 20 ML 20 ML IVP SCH ×3 (00:14→17:15)
[2018-06-29] MEDS: Acetaminophen 325 MG TABLET PO PRN ×2 (00:17→20:35)
--- NOTE | 2018-06-29 03:22 | Sepsis Event Note ---
Sepsis Reassessment Note - Evaluation Sepsis Screen: Sepsis Risk Current Stage of Sepsis: sepsis Possible Source of Sepsis: pulmonary - Focused Exam Date of Encounter: 06/29/18 Time of Encounter: 02:00 Vital Signs: Vital Signs Temp Pulse Resp BP Pulse Ox 06/29/18 02:19 99.0 F 90 21 100/51 93 06/29/18 01:18 100.0 F H 112 25 130/63 96 06/29/18 00:13 102.4 F H 104 23 132/71 92 Respiratory Exam: Present: crackles. Absent: respiratory distress, accessory muscle use Cardiovascular Exam: Present: RRR, tachycardia Capillary Refill: < 2 seconds Peripheral Pulse Strength: 2+ slightly diminished Peripheral Pulse Location: Radial Skin Exam: pink
[2018-06-29 04:11] LABS: Hematocrit 27.7 % (37.5-50.1); Hemoglobin 9.2 g/dL (12.9-16.9); Immature Granulocytes % 0.8 % (0-4); Lymphocytes # 0.6 K/mcL (0.6-4.6); Lymphocytes % 47.7 %; Mean Corpuscular HGB Conc 33.2 g/dL (31.6-35.5); Mean Corpuscular Hemoglobin 31.4 pg (28.0-33.3); Mean Corpuscular Volume 94.5 fL (83.0-100.0); Mean Platelet Volume 10.5 fL (9.4-12.4); Monocytes # 0.1 K/mcL (0.0-1.3); Monocytes % 4.7 %; Neutrophils # 0.6 K/mcL (1.6-8.9); Red Blood Count 2.93 M/mcL (4.19-5.50); Segmented Neutrophils % 46.8 %
[2018-06-29 04:28] LABS: BUN/Creatinine Ratio 16 (6-26); Blood Urea Nitrogen 13 mg/dL (8-23); Calcium 8.8 mg/dL (8.6-10.3); Carbon Dioxide 19 mEq/L (23-29); Chloride 101 mEq/L (98-107); Glucose 224 mg/dL (70-105); Osmolality,Calculated 279 (280-300); Potassium 3.8 mEq/L (3.5-5.1); Sodium 131 mEq/L (136-145); eGFR For Non-African Americans > 60 (> 60)
[2018-06-29 04:40] LABS: Platelet Count 82 K/mcL (140-400)
[2018-06-29 04:44] LABS: Macrocytosis Present (Not Present); Platelet Estimate Slight Decrease (Normal)
[2018-06-29] MEDS ORDERED: *HR* Heparin 5,000 UNIT/ML VIAL SQ SCH (06:00)
[2018-06-29] MEDS: Insulin LISPRO 300 UNITS/3 ML VIAL SQ SCH ×3 (07:46→17:17)
[2018-06-29] MEDS: Ondansetron 4 MG/2 ML VIAL IVP PRN (07:50)
[2018-06-29] MEDS: Aspirin Enteric Coated 81 MG Tablet PO SCH (08:33)
[2018-06-29] MEDS: amLODIPine 5 MG TABLET PO SCH (08:34)
[2018-06-29] MEDS: Isosorbide MONOnitrate (24 HR) 30 MG TAB.ER.24H PO SCH (08:34)
[2018-06-29] MEDS: Metoprolol XL (24 HR) Succ 50 MG TAB.ER.24H PO SCH (08:34)
[2018-06-29] MEDS ORDERED: Levofloxacin 750 MG/150 ML 750 MG/150 ML BAG IVPB SCH (09:00)
[2018-06-29] MEDS: 0.9 % Sodium Chloride 1,000 ML IVC SCH (10:51)
--- NOTE | 2018-06-29 16:10 | Internal Med Progress Note ---
Hospitalist Progress Note - Encounter Date of Encounter: 06/29/18 Time of Encounter: 11:30 - Subjective Interval History: Reports fever, chills, generalized weakness and extreme fatigue and low energy levels. Also has exertional dyspnea. No chest pain, cough, vomiting or diarrhea. - Exam Vitals: Temp Pulse Resp BP Pulse Ox 99.3 F 96 15 105/56 94 06/29/18 15:12 06/29/18 15:12 06/29/18 15:12 06/29/18 15:12 06/29/18 15:12 Exam: General: Well-developed male, lying comfortably in bed in no acute distress, appears tired, pallor noted Skin: Warm and supple HEENT: Moist mucous membranes. Neck: No lymphadenopathy. No JVD. No carotid bruits. No palpable thyroid. Chest: Normal thoracic expansion. Normal breath sounds. Clear to auscultation. Heart: Normal S1 & S2; rhythmic. No rubs or murmurs. Abdomen: Non-distended, soft and nontender Extremities: No clubbing, cyanosis or edema. No calf tenderness. Normal distal pulses. Normal ROM; Neurological: Awake, alert and oriented to person, place and time. No focal deficits. Psych: Affect appropriate. - Assessment and Plan (1) Neutropenic fever Current Visit: Yes Status: Suspected Assessment and Plan: Absolute neutrophil count slightly improving, 600 today. Noted to have fever spike overnight upto 102.4 F. Continue empiric IV antibiotics and follow up cultures. Consulted oncology, follow-up recommendations. Plan for possible bone marrow biopsy to evaluate for MDS. (2) Pancytopenia Current Visit: Yes Status: Acute Assessment and Plan: Patient is noted to have normal white count until December 2017, he is noted to have downtrending white count since February 2018. Similar changes with Hb and platelet count; Possible bone marrow biopsy on Sunday. Follow-up oncology recommendations. Serum vitamin B12 and noted to be low, will start supplements. (3) Weakness Current Visit: Yes Status: Acute Assessment and Plan: Progressively worse. Likely related to underlying anemia. Continue to monitor hemoglobin. Physical and occupational therapy evaluation when stable. (4) DVT prophylaxis Current Visit: Yes Status: Acute Assessment and Plan: On subcutaneous heparin. We will discontinue due to anemia and start EPCDs. (5) Sepsis Current Visit: Yes Status: Suspected Assessment and Plan: Presented with fever, tachycardia, leukopenia. Follow-up cultures and continue broad-spectrum IV antibiotics-vancomycin and cefepime. Discontinue Levaquin for now. Supportive care. (6) Diabetes mellitus Current Visit: Yes Status: Chronic Assessment and Plan: Blood sugars noted to be elevated. Check hemoglobin A1c, start long-acting insulin. Continue Accu-Chek blood glucose monitoring with sliding scale insulin. Hold oral hypoglycemic agents in the hospital. Diabetic diet. (7) Hypertension Current Visit: Yes Status: Chronic (8) Hyperlipidemia Current Visit: Yes Status: Chronic (9) GERD (gastroesophageal reflux disease) Current Visit: Yes Status: Chronic (10) CAD (coronary artery disease) Current Visit: Yes Status: Chronic Assessment and Plan: Continue aspirin, beta addison, statin. (11) CVA (cerebral vascular accident) Current Visit: Yes Status: Chronic - Time Spent with Patient Total time spent is greater than 50% in coordination of care (as documented) at patient's floor/unit and/or counseling patient: Plan of Care Discussed with: patient Internal Medicine: Result - Labs CBC & Chem 7: 06/29/18 03:41 06/29/18 03:41 Labs: Short CBC 06/29/18 Range/Units 03:41 WBC 1.3 L (4.3-11.1) K/mcL Hgb 9.2 L (12.9-16.9) g/dL Hct 27.7 L (37.5-50.1) % Plt Count 82 L (140-400) K/mcL Neutrophils # 0.6 L (1.6-8.9) K/mcL BMP 06/29/18 03:41 Sodium 131 L Potassium 3.8 Chloride 101 Carbon Dioxide 19 L BUN 13 Creatinine 0.82 Glucose 224 H Calcium 8.8 - ABG Interpretation ABG results: PT/INR, D-dimer PT 16.1 Seconds (9.4-12.1) H 06/28/18 17:35 Consult Discharge Plan - Plan Referrals: Edmundo Hill, [employer] [Non-Partnered Physician] - (5) Sepsis Qualifiers: Sepsis type: sepsis due to unspecified organism Qualified Code(s): A41.9 - Sepsis, unspecified organism (6) Diabetes mellitus Qualifiers: Diabetes mellitus type: type 2 Diabetes mellitus alf insulin use: without alf use Diabetes mellitus complication status: with hyperglycemia Qualified Code(s): E11.65 - Type 2 diabetes mellitus with hyperglycemia (7) Hypertension Qualifiers: Hypertension type: essential hypertension Qualified Code(s): I10 - Essential (primary) hypertension (8) Hyperlipidemia Qualifiers: Hyperlipidemia type: unspecified Qualified Code(s): E78.5 - Hyperlipidemia, unspecified (9) GERD (gastroesophageal reflux disease) Qualifiers: Esophagitis presence: esophagitis presence not specified Qualified Code(s): K21.9 - Gastro-esophageal reflux disease without esophagitis (10) CAD (coronary artery disease) Qualifiers: Coronary Disease-Associated Artery/Lesion type: bypass graft [place] vs. transplanted heart: [place] heart Associated angina: without angina Qualified Code(s): I25.810 - Atherosclerosis of coronary artery bypass graft(s) without angina pectoris (11) CVA (cerebral vascular accident) Qualifiers: CVA mechanism: unspecified Qualified Code(s): I63.9 - Cerebral infarction, unspecified
[2018-06-29 17:09] LABS: Estimated Average Glucose 166 mg/dl; Hemoglobin A1C 7.4 %
[2018-06-29] MEDS: Cyanocobalamin (B-12) 1,000 MCG/ML VIAL SQ SCH (17:18)
--- NOTE | 2018-06-29 18:57 | Oncology Inp Progress Note ---
Date of Encounter: 06/29/18 Time of Encounter: 12:00 (1) Pancytopenia Current Visit: Yes Status: Acute Assessment and plan: Since , symptomatic with profound fatigue, aches, febrile. Bone marrow process need to be ruled out. BC sent. No specific foci of infection. CXR, UA to be sent. On IV abx cefipime, VAncomycin. Pulm nodules in chest imaging. B12 low, on daily injections. Folate levels not obtained-ordered. Started folate daily with B12. Bone marrow biopsy early next wk. Plan d/w patient. Oncology: Subj Interval history: Generalized wkness, febrile earlier 102 - Constitutional Vitals: Vital Signs Temp Pulse Resp BP Pulse Ox 06/29/18 15:12 99.3 F 96 15 105/56 94 06/29/18 10:55 98.4 F 99 18 125/62 94 06/29/18 06:22 100.2 F H 93 20 127/70 96 06/29/18 04:16 98.4 F 79 26 127/68 94 06/29/18 02:19 99.0 F 90 21 100/51 93 06/29/18 01:18 100.0 F H 112 25 130/63 96 06/29/18 00:13 102.4 F H 104 23 132/71 92 Intake and Output 06/29/18 06/29/18 06/29/18 07:59 15:59 23:59 Intake Total 1870 / 1870 Output Total 525 / 525 350 / 350 Balance -505 / -505 1520 / 1520 Intake: IV Fluids 1270 / 1270 0.9 % Sodium Chloride 1,000 ML 1000 / 1000 @ 100 mls/hr IVC .Q10H [facility] Rx#: [id number] Maxipime 2,000 MG In Water for 20 inj. (sterile) 20 ML @ 300 mls/ hr IVP Q8HR [facility] Rx#:[id number] Vancocin 1,500 MG In 0.9 % 250 / 250 Sodium Chloride 250 ML @ 167 mls/hr IVPB Q12H [facility] Rx#: [id number] Oral 0 / 0 600 / 600 Output: Urine 525 / 525 350 / 350 Other: Stool Size Small Stool Consistency liquid Stool Color Yellow Green # Voids 1 # Bowel Movements 1 Weight 102.4 kg Blood Glucose* 209 255 175 Patient Weight 06/29/18 23:59 Weight 102.4 kg General appearance: average body habitus, no acute distress - Head Head exam: Present: atraumatic, normal inspection - Eye Eye exam: Present: sclera anicteric - ENT ENT exam: Present: mucous membranes dry - Neck Neck exam: Present: full ROM - Respiratory Respiratory exam: Present: CTAB - Cardiovascular Cardiovascular exam: Present: +S1, +S2 - GI/Abdominal GI/Abdominal exam: Present: normal bowel sounds, soft - Extremities Exam Extremities exam: Present: normal inspection - Neurological Exam Neurological exam: Present: alert, oriented X3, no focal deficits - Psychiatric Psychiatric exam: Present: normal affect Oncology: Obj Data - Labs CBC & Chem 7: 06/29/18 03:41 06/29/18 03:41 Labs: Laboratory Results - last 24 hr 06/29/18 06/29/18 06/29/18 03:41 03:41 03:41 WBC 1.3 L RBC 2.93 L Hgb 9.2 L Hct 27.7 L MCV 94.5 MCH 31.4 MCHC 33.2 RDW 18.0 H Plt Count 82 L MPV 10.5 Immature Gran % 0.8 Seg Neutrophils % 46.8 Lymphocytes % 47.7 Monocytes % 4.7 Eosinophils % 0.0 Basophils % 0.0 Neutrophils # 0.6 L Lymphocytes # 0.6 Monocytes # 0.1 Eosinophils # 0.0 Basophils # 0.0 Platelet Estimate Slight Decrease L Macrocytosis Present A Sodium 131 L Potassium 3.8 Chloride 101 Carbon Dioxide 19 L BUN 13 Creatinine 0.82 Est GFR ( Amer) > 60 Est GFR (Non-Af Amer) > 60 BUN/Creatinine Ratio 16 Glucose 224 H POC Glucose Est Mean Plasma Glucose 166 Hemoglobin A1c 7.4 H Calculated Osmolality 279 L Calcium 8.8 06/29/18 16:51 WBC RBC Hgb Hct MCV MCH MCHC RDW Plt Count MPV Immature Gran % Seg Neutrophils % Lymphocytes % Monocytes % Eosinophils % Basophils % Neutrophils # Lymphocytes # Monocytes # Eosinophils # Basophils # Platelet Estimate Macrocytosis Sodium Potassium Chloride Carbon Dioxide BUN Creatinine Est GFR ( Amer) Est GFR (Non-Af Amer) BUN/Creatinine Ratio Glucose POC Glucose 175 H Est Mean Plasma Glucose Hemoglobin A1c Calculated Osmolality Calcium - ABG Interpretation ABG results: PT/INR, D-dimer PT 16.1 Seconds (9.4-12.1) H 06/28/18 17:35 Consult Discharge Plan - Plan Referrals: Edmundo Hill, ANGELA [Non-Partnered Physician] -
[2018-06-29] MEDS: Folic Acid 1 MG TABLET PO SCH (20:35)
[2018-06-29] MEDS: Insulin DETEMIR 100 UNIT/ML X5UNITS SQ SCH (20:37)
[2018-06-30] MEDS: Insulin LISPRO 300 UNITS/3 ML VIAL SQ SCH ×5 (00:07→20:25)
[2018-06-30] MEDS: Cefepime HCl 2,000 MG in Water for inj. (sterile) 20 ML 20 ML IVP SCH ×3 (00:56→16:02)
[2018-06-30 02:58] LABS: Red Cell Distribution Width 17.8 % (11.5-14.5)
[2018-06-30 03:00] LABS: Hematocrit 25.6 % (37.5-50.1); Hemoglobin 8.3 g/dL (12.9-16.9); Lymphocytes # 0.5 K/mcL (0.6-4.6); Mean Corpuscular HGB Conc 32.4 g/dL (31.6-35.5); Mean Corpuscular Hemoglobin 31.4 pg (28.0-33.3); Mean Platelet Volume 10.3 fL (9.4-12.4); Monocytes # 0.1 K/mcL (0.0-1.3); Neutrophils # 0.4 K/mcL (1.6-8.9); Red Blood Count 2.64 M/mcL (4.19-5.50)
[2018-06-30 03:03] LABS: Platelet Count 66 K/mcL (140-400)
[2018-06-30 03:18] LABS: BUN/Creatinine Ratio 20 (6-26); Blood Urea Nitrogen 16 mg/dL (8-23); Calcium 8.5 mg/dL (8.6-10.3); Carbon Dioxide 20 mEq/L (23-29); Chloride 109 mEq/L (98-107); Glucose 171 mg/dL (70-105); Osmolality,Calculated 273 (280-300); Potassium 3.6 mEq/L (3.5-5.1); Sodium 129 mEq/L (136-145); eGFR For Non-African Americans > 60 (> 60)
[2018-06-30 03:25] LABS: Anisocytosis 1+ (Not Present); Hypochromasia Present (Not Present); Platelet Estimate Decreased (Normal)
[2018-06-30] MEDS: Ondansetron 4 MG/2 ML VIAL IVP PRN ×2 (08:10→20:20)
[2018-06-30] MEDS: Cyanocobalamin (B-12) 1,000 MCG/ML VIAL SQ SCH (08:15)
[2018-06-30] MEDS: Insulin DETEMIR 100 UNIT/ML X5UNITS SQ SCH ×2 (08:17→20:25)
[2018-06-30] MEDS: amLODIPine 5 MG TABLET PO SCH (10:33)
[2018-06-30] MEDS: Aspirin Enteric Coated 81 MG Tablet PO SCH (10:33)
[2018-06-30] MEDS: Folic Acid 1 MG TABLET PO SCH (10:34)
[2018-06-30] MEDS: Metoprolol XL (24 HR) Succ 50 MG TAB.ER.24H PO SCH (10:34)
[2018-06-30] MEDS: Isosorbide MONOnitrate (24 HR) 30 MG TAB.ER.24H PO SCH (10:34)
[2018-06-30 10:48] LABS: BUN/Creatinine Ratio 22 (6-26); Blood Urea Nitrogen 18 mg/dL (8-23); eGFR For Non-African Americans > 60 (> 60)
[2018-06-30] MEDS: Ringers Solution, Lactated 1,000 ML IVC SCH (11:53)
[2018-06-30 12:18] LABS: Bilirubin,Urine Small (Negative); Blood,Urine Negative (Negative); Color,Urine Dark Yellow (Yellow); Glucose,Urine (UA) Normal (Normal); Ketones,Urine 15 mg/dL (Negative); Leukocyte Esterase,Urine Negative (Negative); Nitrite,Urine Negative (Negative); PH,Urine 5.5 pH Units (5.0-8.0); Protein,Urine 100 mg/dL (Neg-Trace); Urobilinogen,Urine Normal (Normal)
[2018-06-30 12:21] LABS: Bacteria,Urine None Seen per hpf (None-Few); Hyaline Casts,Urine Few per lpf (None-Few); RBC,Urine 0-3 per hpf (0-3); Squamous Epithelial Cell,Urine Many per lpf (None-Few)
[2018-06-30 12:28] LABS: Clarity,Urine Slightly Hazy (Clear)
--- NOTE | 2018-06-30 14:29 | Internal Med Progress Note ---
Hospitalist Progress Note - Encounter Date of Encounter: 06/30/18 Time of Encounter: 10:55 - Subjective Interval History: Reports generalized weakness and fatigue, minimally improved. Improving nausea. No vomiting or diarrhea. Had low-grade fever overnight. Improved dizziness. No chest pain, shortness of breath, syncope. - Exam Vitals: Temp Pulse Resp BP Pulse Ox 98.4 F 97 17 119/59 98 06/30/18 10:38 06/30/18 10:38 06/30/18 10:38 06/30/18 10:38 06/30/18 10:38 Exam: General: Well-developed male, lying comfortably in bed in no acute distress, appears tired, pallor noted Skin: Warm and supple Chest: Normal thoracic expansion. Normal breath sounds. Clear to auscultation. Heart: Normal S1 & S2; rhythmic. No rubs or murmurs. Abdomen: Non-distended, soft and nontender Extremities: No clubbing, cyanosis or edema. No calf tenderness. Normal distal pulses. Normal ROM; Neurological: Awake, alert and oriented to person, place and time. No focal deficits. Psych: Affect appropriate. - Assessment and Plan (1) Neutropenic fever Current Visit: Yes Status: Suspected Assessment and Plan: Absolute neutrophil count 400, neutropenic precautions; low grade fever of 100.1 overnight. Continue empiric IV antibiotics and follow up cultures. Consulted oncology; Plan for possible bone marrow biopsy to evaluate for MDS. (2) Pancytopenia Current Visit: Yes Status: Acute Assessment and Plan: Patient is noted to have normal white count until December 2017, he is noted to have downtrending white count since February 2018. Similar changes with Hb and platelet count; Possible bone marrow biopsy on Sunday. Serum vitamin B12 and noted to be low, started on supplements. FA level higher than normal; (3) Weakness Current Visit: Yes Status: Acute Assessment and Plan: Progressively worse. Likely related to underlying anemia. TSH normal; Continue to monitor hemoglobin. Physical and occupational therapy evaluation when stable. (4) DVT prophylaxis Current Visit: Yes Status: Acute (5) Sepsis Current Visit: Yes Status: Suspected Assessment and Plan: Presented with fever, tachycardia, leukopenia. Follow-up cultures and continue broad-spectrum IV antibiotics-vancomycin and cefepime. Send urine analysis and culture; Supportive care. (6) Diabetes mellitus Current Visit: Yes Status: Chronic Assessment and Plan: Blood sugars noted to be elevated. Hemoglobin A1c 7.4%, will increase long- acting insulin. Continue Accu-Chek blood glucose monitoring with sliding scale insulin. Hold oral hypoglycemic agents in the hospital. Diabetic diet. (7) Hypertension Current Visit: Yes Status: Chronic (8) Hyperlipidemia Current Visit: Yes Status: Chronic (9) GERD (gastroesophageal reflux disease) Current Visit: Yes Status: Chronic (10) CAD (coronary artery disease) Current Visit: Yes Status: Chronic (11) CVA (cerebral vascular accident) Current Visit: Yes Status: Chronic - Time Spent with Patient Total time spent is greater than 50% in coordination of care (as documented) at patient's floor/unit and/or counseling patient: Plan of Care Discussed with: patient Internal Medicine: Result - Labs CBC & Chem 7: 06/30/18 02:50 06/30/18 10:10 Labs: Short CBC 06/30/18 Range/Units 02:50 WBC 1.0 L* (4.3-11.1) K/mcL Hgb 8.3 L (12.9-16.9) g/dL Hct 25.6 L (37.5-50.1) % Plt Count 66 L (140-400) K/mcL Neutrophils # 0.4 L (1.6-8.9) K/mcL BMP 06/30/18 06/30/18 02:50 10:10 Sodium 129 L Potassium 3.6 Chloride 109 H Carbon Dioxide 20 L BUN 16 18 Creatinine 0.82 0.82 Glucose 171 H Calcium 8.5 L Urine 06/30/18 Range/Units 12:11 Urine Color Dark Yellow (Yellow) Urine Clarity Slightly Hazy (Clear) Urine pH 5.5 (5.0-8.0) pH Units Ur Specific [place] 1.030 H (1.010-1.025) Urine Protein 100 H (Neg-Trace) mg/dL Urine Glucose (UA) Normal (Normal) mg/dL - ABG Interpretation ABG results: PT/INR, D-dimer PT 16.1 Seconds (9.4-12.1) H 06/28/18 17:35 Consult Discharge Plan - Plan Referrals: Edmundo Hill, [employer] [Non-Partnered Physician] - (5) Sepsis Qualifiers: Sepsis type: sepsis due to unspecified organism Qualified Code(s): A41.9 - Sepsis, unspecified organism (6) Diabetes mellitus Qualifiers: Diabetes mellitus type: type 2 Diabetes mellitus long distance operator insulin use: without senior care use Diabetes mellitus complication status: with hyperglycemia Qualified Code(s): E11.65 - Type 2 diabetes mellitus with hyperglycemia (7) Hypertension Qualifiers: Hypertension type: essential hypertension Qualified Code(s): I10 - Essential (primary) hypertension (8) Hyperlipidemia Qualifiers: Hyperlipidemia type: unspecified Qualified Code(s): E78.5 - Hyperlipidemia, unspecified (9) GERD (gastroesophageal reflux disease) Qualifiers: Esophagitis presence: esophagitis presence not specified Qualified Code(s): K21.9 - Gastro-esophageal reflux disease without esophagitis (10) CAD (coronary artery disease) Qualifiers: Coronary Disease-Associated Artery/Lesion type: bypass graft [place] vs. transplanted heart: [place] heart Associated angina: without angina Qualified Code(s): I25.810 - Atherosclerosis of coronary artery bypass graft(s) without angina pectoris (11) CVA (cerebral vascular accident) Qualifiers: CVA mechanism: unspecified Qualified Code(s): I63.9 - Cerebral infarction, unspecified
[2018-06-30] MEDS: Budesonide/Formoterol 80/4.5 MDI IH SCH (22:15)
[2018-07-01] MEDS: Ringers Solution, Lactated 1,000 ML IVC SCH (00:30)
[2018-07-01] MEDS: Cefepime HCl 2,000 MG in Water for inj. (sterile) 20 ML 20 ML IVP SCH ×2 (01:18→08:44)
[2018-07-01 04:18] LABS: Eosinophils % 2.9 %; Hematocrit 24.6 % (37.5-50.1); Hemoglobin 7.9 g/dL (12.9-16.9); Immature Granulocytes % 2.9 % (0-4); Lymphocytes % 63.1 %; Mean Corpuscular HGB Conc 32.1 g/dL (31.6-35.5); Mean Corpuscular Hemoglobin 32.1 pg (28.0-33.3); Mean Platelet Volume 11.3 fL (9.4-12.4); Monocytes # 0.1 K/mcL (0.0-1.3); Monocytes % 6.8 %; Red Blood Count 2.46 M/mcL (4.19-5.50); Red Cell Distribution Width 17.6 % (11.5-14.5); Segmented Neutrophils % 24.3 %
[2018-07-01 04:32] LABS: Lymphocytes # 0.6 K/mcL (0.6-4.6); Neutrophils # 0.2 K/mcL (1.6-8.9); Platelet Count 65 K/mcL (140-400)
[2018-07-01 04:38] LABS: BUN/Creatinine Ratio 25 (6-26); Blood Urea Nitrogen 20 mg/dL (8-23); Calcium 8.2 mg/dL (8.6-10.3); Carbon Dioxide 21 mEq/L (23-29); Chloride 104 mEq/L (98-107); Glucose 152 mg/dL (70-105); Osmolality,Calculated 282 (280-300); Potassium 3.7 mEq/L (3.5-5.1); Sodium 133 mEq/L (136-145); eGFR For Non-African Americans > 60 (> 60)
[2018-07-01 04:43] LABS: Platelet Estimate Decreased (Normal)
[2018-07-01] MEDS ORDERED: Aminoglycoside Consult 1 EACH MC ONE (07:33)
[2018-07-01] MEDS: Budesonide/Formoterol 80/4.5 MDI IH SCH ×2 (07:44→22:45)
[2018-07-01] MEDS: Insulin LISPRO 300 UNITS/3 ML VIAL SQ SCH ×4 (07:50→21:30)
[2018-07-01] MEDS: Cyanocobalamin (B-12) 1,000 MCG/ML VIAL SQ SCH (08:48)
[2018-07-01] MEDS: Folic Acid 1 MG TABLET PO SCH (08:48)
[2018-07-01] MEDS: amLODIPine 5 MG TABLET PO SCH (08:48)
[2018-07-01] MEDS: Aspirin Enteric Coated 81 MG Tablet PO SCH (08:48)
[2018-07-01] MEDS: Metoprolol XL (24 HR) Succ 50 MG TAB.ER.24H PO SCH (08:48)
[2018-07-01] MEDS: Isosorbide MONOnitrate (24 HR) 30 MG TAB.ER.24H PO SCH (08:48)
[2018-07-01] MEDS: Insulin DETEMIR 100 UNIT/ML X5UNITS SQ SCH ×2 (08:49→21:32)
[2018-07-01] MEDS ORDERED: 0.9 % Sodium Chloride 500 ML ONE (09:19)
[2018-07-01] MEDS ORDERED: *HR* FentaNYL (PF) 100 MCG/2 ML VIAL IVP ONE (09:20)
--- NOTE | 2018-07-01 10:04 | IR Procedure Note ---
Date of procedure: 07/01/18 Consent Obtained: Written consent Timeout: Correct patient and procedure verified, Correct site verified, Time out performed, Skin prep completed Indications: pancytopenia Procedure Performed: bone marrow biopsy Was there an quality control assistant present: No Site/Technique: left iliac bone, JamShidi device Results/Findings: 9cc marrow, cortical biopsy Estimated blood loss (cc): 2 Complications: None; Tolerated procedure well Post Procedure Treatment Plan: recovery Specimen: 9cc bone marrow, cortical bone
--- NOTE | 2018-07-01 11:01 | Oncology Inp Progress Note ---
<Tino Saldana - Last Filed: 07/01/18 16:40> Date of Encounter: 07/01/18 Time of Encounter: 10:59 (1) Pancytopenia Current Visit: Yes Status: Acute Assessment and plan: Present since February 2018 and gradually worsening. Clinically the patient states that he feels better. Patient had bone marrow biopsy performed this morning. Concern for primary bone marrow process, bone marrow biopsy results pending. Afebrile past 24 hours, cultures negative with no clear source of infection, antibiotics have been discontinued. Absolute neutrophil count of 243. Anemia with low B12 levels, replacement initiated. Oncology: Subj Interval history: Patient seen and examined at bedside. Patient states that he feels better today. He reports that he still feels extremely weak and has minimal appetite with associated nausea and vomiting when eating. He denies any pain. He did report fever overnight with sweating, overnight temperature documented at 99.8 F. - Constitutional Vitals: Vital Signs Temp Pulse Resp BP Pulse Ox 07/01/18 09:31 112 10 121/76 96 07/01/18 09:27 95 13 119/72 97 07/01/18 07:45 16 92 07/01/18 05:38 98.8 F 86 15 124/63 92 07/01/18 00:42 99.8 F H 85 19 116/69 90 06/30/18 22:15 17 96 06/30/18 19:57 98.6 F 90 18 105/54 99 06/30/18 14:48 98.9 F 78 18 100/59 99 Intake and Output 06/30/18 07/01/18 07/01/18 23:59 07:59 15:59 Intake Total 1140 / 1140 270 / 270 20 / 20 Output Total 0 / 0 0 / 0 Balance 1140 / 1140 270 / 270 20 / 20 Intake: IV Fluids 1020 / 1020 270 / 270 20 / 20 Lactated Ringers 1,000 ML @ 100 1000 / 1000 mls/hr IVC .Q10H [facility] Rx#: [id number] Maxipime 2,000 MG In Water for 20 / 20 20 / 20 20 / 20 inj. (sterile) 20 ML @ 300 mls/ hr IVP Q8HR [facility] Rx#:[id number] Vancocin 1,500 MG In 0.9 % 250 / 250 Sodium Chloride 250 ML @ 167 mls/hr IVPB Q12H [facility] Rx#: [id number] Oral 120 / 120 0 / 0 0 / 0 Output: Urine 0 / 0 0 / 0 Other: Meal Dinner- peaches only npo Percent of Meal Consumed 0% Stool Size Small Stool Consistency formed Stool Color Brown # Voids 1 Blood Glucose* 198 182 General appearance: no acute distress - ENT ENT exam: Present: mucous membranes moist - Respiratory Respiratory exam: Present: CTAB - Cardiovascular Cardiovascular exam: Present: RRR - GI/Abdominal GI/Abdominal exam: Present: normal bowel sounds, soft. Absent: tenderness - Extremities Exam Extremities exam: Absent: pedal edema - Neurological Exam Neurological exam: Present: alert, oriented X3, no focal deficits Oncology: Obj Data - Labs CBC & Chem 7: 07/01/18 03:34 07/01/18 03:34 Labs: Laboratory Results - last 24 hr 06/29/18 06/29/18 06/29/18 07:07 10:54 20:48 WBC RBC Hgb Hct MCV MCH MCHC RDW Plt Count MPV Immature Gran % Seg Neutrophils % Lymphocytes % Monocytes % Eosinophils % Basophils % Neutrophils # Lymphocytes # Monocytes # Eosinophils # Basophils # Platelet Estimate Sodium Potassium Chloride Carbon Dioxide BUN Creatinine Est GFR ( Amer) Est GFR (Non-Af Amer) BUN/Creatinine Ratio Glucose POC Glucose 209 H 255 H 189 H Calculated Osmolality Calcium Urine Color Urine Clarity Urine pH Ur Specific [place] Urine Protein Urine Glucose (UA) Urine Ketones Urine Blood Urine Nitrite Urine Bilirubin Urine Urobilinogen Ur Leukocyte Esterase Urine Microscopic RBC Urine Microscopic WBC Ur Squamous Epith Cells Urine Bacteria Hyaline Casts Ur Culture Indicated? Vancomycin Trough 06/30/18 06/30/18 06/30/18 11:29 12:11 16:42 WBC RBC Hgb Hct MCV MCH MCHC RDW Plt Count MPV Immature Gran % Seg Neutrophils % Lymphocytes % Monocytes % Eosinophils % Basophils % Neutrophils # Lymphocytes # Monocytes # Eosinophils # Basophils # Platelet Estimate Sodium Potassium Chloride Carbon Dioxide BUN Creatinine Est GFR ( Amer) Est GFR (Non-Af Amer) BUN/Creatinine Ratio Glucose POC Glucose 202 H 198 H Calculated Osmolality Calcium Urine Color Dark Yellow Urine Clarity Slightly Hazy Urine pH 5.5 Ur Specific [place] 1.030 H Urine Protein 100 H Urine Glucose (UA) Normal Urine Ketones 15 H Urine Blood Negative Urine Nitrite Negative Urine Bilirubin Small H Urine Urobilinogen Normal Ur Leukocyte Esterase Negative Urine Microscopic RBC 0-3 Urine Microscopic WBC 3-5 H Ur Squamous Epith Cells Many H Urine Bacteria None Seen Hyaline Casts Few Ur Culture Indicated? NO Vancomycin Trough 06/30/18 06/30/18 07/01/18 20:15 21:52 03:34 WBC 1.0 L* RBC 2.46 L Hgb 7.9 L Hct 24.6 L MCV 100.0 MCH 32.1 MCHC 32.1 RDW 17.6 H Plt Count 65 L MPV 11.3 Immature Gran % 2.9 Seg Neutrophils % 24.3 Lymphocytes % 63.1 Monocytes % 6.8 Eosinophils % 2.9 Basophils % 0.0 Neutrophils # 0.2 L Lymphocytes # 0.6 Monocytes # 0.1 Eosinophils # 0.0 Basophils # 0.0 Platelet Estimate Decreased L Sodium Potassium Chloride Carbon Dioxide BUN Creatinine Est GFR ( Amer) Est GFR (Non-Af Amer) BUN/Creatinine Ratio Glucose POC Glucose 211 H Calculated Osmolality Calcium Urine Color Urine Clarity Urine pH Ur Specific [place] Urine Protein Urine Glucose (UA) Urine Ketones Urine Blood Urine Nitrite Urine Bilirubin Urine Urobilinogen Ur Leukocyte Esterase Urine Microscopic RBC Urine Microscopic WBC Ur Squamous Epith Cells Urine Bacteria Hyaline Casts Ur Culture Indicated? Vancomycin Trough 16 H 07/01/18 03:34 WBC RBC Hgb Hct MCV MCH MCHC RDW Plt Count MPV Immature Gran % Seg Neutrophils % Lymphocytes % Monocytes % Eosinophils % Basophils % Neutrophils # Lymphocytes # Monocytes # Eosinophils # Basophils # Platelet Estimate Sodium 133 L Potassium 3.7 Chloride 104 Carbon Dioxide 21 L BUN 20 Creatinine 0.79 Est GFR ( Amer) > 60 Est GFR (Non-Af Amer) > 60 BUN/Creatinine Ratio 25 Glucose 152 H POC Glucose Calculated Osmolality 282 Calcium 8.2 L Urine Color Urine Clarity Urine pH Ur Specific [place] Urine Protein Urine Glucose (UA) Urine Ketones Urine Blood Urine Nitrite Urine Bilirubin Urine Urobilinogen Ur Leukocyte Esterase Urine Microscopic RBC Urine Microscopic WBC Ur Squamous Epith Cells Urine Bacteria Hyaline Casts Ur Culture Indicated? Vancomycin Trough - ABG Interpretation ABG results: PT/INR, D-dimer PT 16.1 Seconds (9.4-12.1) H 06/28/18 17:35 Consult Discharge Plan - Plan Referrals: Edmundo Hill, [employer] [Non-Partnered Physician] - <Scott Marcano - Last Filed: 07/01/18 17:06> Date of Encounter: 07/01/18 (1) Pancytopenia Current Visit: Yes Status: Acute Oncology: Subj Interval history: Patient with B12 deficiency on injections. Fatigue is his main complaint overall he is feeling little better today. Status post bone marrow aspiration and biopsy patient denies any symptoms today. He is doing physical therapy. I examined this patient and my medical decision-making was reviewed with resident physician Tino Saldana. I agree with the documented findings, disposition and treatment plan as described except to the extent set forth below. - Constitutional Vitals: Vital Signs Temp Pulse Resp BP Pulse Ox 07/01/18 11:50 98.8 F 86 16 121/63 90 07/01/18 09:31 112 10 121/76 96 07/01/18 09:27 95 13 119/72 97 07/01/18 07:45 16 92 07/01/18 05:38 98.8 F 86 15 124/63 92 07/01/18 00:42 99.8 F H 85 19 116/69 90 06/30/18 22:15 17 96 06/30/18 19:57 98.6 F 90 18 105/54 99 Intake and Output 07/01/18 07/01/18 07/01/18 07:59 15:59 23:59 Intake Total 270 / 270 20 / 20 Output Total 0 / 0 0 / 0 Balance 270 / 270 20 / 20 Intake: IV Fluids 270 / 270 20 / 20 Maxipime 2,000 MG In Water for 20 / 20 20 / 20 inj. (sterile) 20 ML @ 300 mls/ hr IVP Q8HR [facility] Rx#:[id number] Vancocin 1,500 MG In 0.9 % 250 / 250 Sodium Chloride 250 ML @ 167 mls/hr IVPB Q12H [facility] Rx#: [id number] Oral 0 / 0 0 / 0 Output: Urine 0 / 0 0 / 0 Other: Meal npo Percent of Meal Consumed 0% # Bowel Movements 0 Blood Glucose* 182 265 194 Oncology: Obj Data - Labs CBC & Chem 7: 07/01/18 03:34 07/01/18 03:34 Labs: Laboratory Results - last 24 hr 06/29/18 06/29/18 06/29/18 07:07 10:54 20:48 WBC RBC Hgb Hct MCV MCH MCHC RDW Plt Count MPV Immature Gran % Seg Neutrophils % Lymphocytes % Monocytes % Eosinophils % Basophils % Neutrophils # Lymphocytes # Monocytes # Eosinophils # Basophils # Platelet Estimate Sodium Potassium Chloride Carbon Dioxide BUN Creatinine Est GFR ( Amer) Est GFR (Non-Af Amer) BUN/Creatinine Ratio Glucose POC Glucose 209 H 255 H 189 H Calculated Osmolality Calcium Vancomycin Trough 06/30/18 06/30/18 07/01/18 20:15 21:52 03:34 WBC 1.0 L* RBC 2.46 L Hgb 7.9 L Hct 24.6 L MCV 100.0 MCH 32.1 MCHC 32.1 RDW 17.6 H Plt Count 65 L MPV 11.3 Immature Gran % 2.9 Seg Neutrophils % 24.3 Lymphocytes % 63.1 Monocytes % 6.8 Eosinophils % 2.9 Basophils % 0.0 Neutrophils # 0.2 L Lymphocytes # 0.6 Monocytes # 0.1 Eosinophils # 0.0 Basophils # 0.0 Platelet Estimate Decreased L Sodium Potassium Chloride Carbon Dioxide BUN Creatinine Est GFR ( Amer) Est GFR (Non-Af Amer) BUN/Creatinine Ratio Glucose POC Glucose 211 H Calculated Osmolality Calcium Vancomycin Trough 16 H 07/01/18 07/01/18 07/01/18 03:34 11:49 16:10 WBC RBC Hgb Hct MCV MCH MCHC RDW Plt Count MPV Immature Gran % Seg Neutrophils % Lymphocytes % Monocytes % Eosinophils % Basophils % Neutrophils # Lymphocytes # Monocytes # Eosinophils # Basophils # Platelet Estimate Sodium 133 L Potassium 3.7 Chloride 104 Carbon Dioxide 21 L BUN 20 Creatinine 0.79 Est GFR ( Amer) > 60 Est GFR (Non-Af Amer) > 60 BUN/Creatinine Ratio 25 Glucose 152 H POC Glucose 265 H 194 H Calculated Osmolality 282 Calcium 8.2 L Vancomycin Trough - Impressions Impressions Biopsy CT 07/01/18 00:00 IMPRESSION: Successful CT guided bone marrow aspiration and core biopsy of the iliac bone. D/ / Yessenia Donald MD / Yessenia Donald MD Interpreting Provider: Yessenia Donald MD Bone Marrow Biopsy w/ CT 07/01/18 00:00 IMPRESSION: Successful CT guided bone marrow aspiration and core biopsy of the iliac bone. D/ / Yessenia Donald MD / Yessenia Donald MD Interpreting Provider: Yessenia Donald MD - ABG Interpretation ABG results: PT/INR, D-dimer PT 16.1 Seconds (9.4-12.1) H 06/28/18 17:35 Inpatient Charges Provider: Dr. Lizzy Marcano Follow Up: [id number]
[2018-07-01] MEDS: Ondansetron 4 MG/2 ML VIAL IVP PRN (12:29)
--- NOTE | 2018-07-01 14:01 | Internal Med Progress Note ---
Hospitalist Progress Note - Encounter Date of Encounter: 07/01/18 Time of Encounter: 11:00 - Subjective Interval History: Reports improving dizziness and weakness, although he still unable to make independent transfers or get out of bed. Improved nausea and emesis. Underwent bone marrow biopsy today. No chest pain, shortness of breath, palpitations. Plan of care discussed with patient's daughter at bedside, who is very concerned about his generalized weakness and inability to ambulate independently as patient is his 's caregiver at home. - Exam Vitals: Temp Pulse Resp BP Pulse Ox 98.8 F 86 16 121/63 90 07/01/18 11:50 07/01/18 11:50 07/01/18 11:50 07/01/18 11:50 07/01/18 11:50 Exam: General: Well-developed male, lying comfortably in bed in no acute distress, appears tired, pallor noted Skin: Warm and supple Chest: Normal thoracic expansion. Normal breath sounds. Clear to auscultation. Heart: Normal S1 & S2; rhythmic. No rubs or murmurs. Abdomen: Non-distended, soft and nontender Extremities: No clubbing, cyanosis or edema. No calf tenderness. Normal distal pulses. Normal ROM; Neurological: Awake, alert and oriented to person, place and time. No focal deficits. Psych: Affect appropriate. - Assessment and Plan (1) Neutropenic fever Current Visit: Yes Status: Suspected Assessment and Plan: Absolute neutrophil count 200, neutropenic precautions; no fever spikes overnight; will discontinue IV antibiotics; blood cultures remain negative. Urinalysis shows no evidence of infection. Chest x-ray shows no focal infiltrates. Oncology on board; underwent bone marrow biopsy today; (2) Pancytopenia Current Visit: Yes Status: Acute Assessment and Plan: Patient is noted to have normal white count until December 2017, he is noted to have downtrending white count since February 2018. Similar changes with Hb and platelet count; s/p bone marrow biopsy today. F/up Oncology recommendations; Serum vitamin B12 and noted to be low, started on supplements. FA level higher than normal; PT/OT evaluation recommend ECF placement; patient continues to have generalized weakness; (3) Weakness Current Visit: Yes Status: Acute Assessment and Plan: Progressively worse. Likely related to underlying anemia. TSH normal; Continue to monitor hemoglobin. Physical and occupational therapy evaluation recommend ECF placement; social media project manager consulted; (4) DVT prophylaxis Current Visit: Yes Status: Acute (5) Sepsis Current Visit: Yes Status: Ruled-out Assessment and Plan: Presented with fever, tachycardia, leukopenia, no source of infection identified as mentioned above. (6) Diabetes mellitus Current Visit: Yes Status: Chronic Assessment and Plan: Blood sugars noted to be better controlled. Continue current regimen of basal bolus insulin. Hemoglobin A1c 7.4%; Continue Accu-Chek blood glucose monitoring. Hold oral hypoglycemic agents in the hospital. Diabetic diet. (7) Hypertension Current Visit: Yes Status: Chronic (8) Hyperlipidemia Current Visit: Yes Status: Chronic (9) GERD (gastroesophageal reflux disease) Current Visit: Yes Status: Chronic (10) CAD (coronary artery disease) Current Visit: Yes Status: Chronic (11) CVA (cerebral vascular accident) Current Visit: Yes Status: Chronic - Time Spent with Patient Total time spent is greater than 50% in coordination of care (as documented) at patient's floor/unit and/or counseling patient: Plan of Care Discussed with: patient Internal Medicine: Result - Labs CBC & Chem 7: 07/01/18 03:34 07/01/18 03:34 Labs: Short CBC 07/01/18 Range/Units 03:34 WBC 1.0 L* (4.3-11.1) K/mcL Hgb 7.9 L (12.9-16.9) g/dL Hct 24.6 L (37.5-50.1) % Plt Count 65 L (140-400) K/mcL Neutrophils # 0.2 L (1.6-8.9) K/mcL BMP 07/01/18 03:34 Sodium 133 L Potassium 3.7 Chloride 104 Carbon Dioxide 21 L BUN 20 Creatinine 0.79 Glucose 152 H Calcium 8.2 L - ABG Interpretation ABG results: PT/INR, D-dimer PT 16.1 Seconds (9.4-12.1) H 06/28/18 17:35 - Impressions Impressions Biopsy CT 07/01/18 00:00 IMPRESSION: Successful CT guided bone marrow aspiration and core biopsy of the iliac bone. D/ / Yessenia Donald MD / Yessenia Donald MD Interpreting Provider: Yessenia Donald MD Bone Marrow Biopsy w/ CT 07/01/18 00:00 IMPRESSION: Successful CT guided bone marrow aspiration and core biopsy of the iliac bone. D/ / Yessenia Donald MD / Yessenia Donald MD Interpreting Provider: Yessenia Donald MD Consult Discharge Plan - Plan Referrals: Edmundo Hill STOCK PLAN ADMINISTRATOR [Non-Partnered Physician] - (5) Sepsis Qualifiers: Sepsis type: sepsis due to unspecified organism Qualified Code(s): A41.9 - Sepsis, unspecified organism (6) Diabetes mellitus Qualifiers: Diabetes mellitus type: type 2 Diabetes mellitus alf insulin use: without alf use Diabetes mellitus complication status: with hyperglycemia Qualified Code(s): E11.65 - Type 2 diabetes mellitus with hyperglycemia (7) Hypertension Qualifiers: Hypertension type: essential hypertension Qualified Code(s): I10 - Essential (primary) hypertension (8) Hyperlipidemia Qualifiers: Hyperlipidemia type: unspecified Qualified Code(s): E78.5 - Hyperlipidemia, unspecified (9) GERD (gastroesophageal reflux disease) Qualifiers: Esophagitis presence: esophagitis presence not specified Qualified Code(s): K21.9 - Gastro-esophageal reflux disease without esophagitis (10) CAD (coronary artery disease) Qualifiers: Coronary Disease-Associated Artery/Lesion type: bypass graft [place] vs. transplanted heart: [place] heart Associated angina: without angina Qualified Code(s): I25.810 - Atherosclerosis of coronary artery bypass graft(s) without angina pectoris (11) CVA (cerebral vascular accident) Qualifiers: CVA mechanism: unspecified Qualified Code(s): I63.9 - Cerebral infarction, unspecified
--- NOTE | 2018-07-01 17:18 | Electrocardiograph Report ---
[place] [id number] Test Date: 2018-06-28 Pat Name: Homar Harris Department: [id number] Room: 3A11 Gender: M Dual Rate Supervisor: : 1930 Requested By: Marcin Borrego Order Number: [id number] Reading MD: Javid English Measurements Intervals [place] Rate: 102 P: 71 WV: 138 QRS: 37 QRSD: 132 T: 17 QT: 379 QTc: 494 Interpretive Statements Sinus tachycardia WITH PACs RBBB Electronically Signed On 07-01-2018 17:16:34 EDT by Javid English
--- NOTE | 2018-07-01 17:48 | Electrocardiograph Report ---
[place] [id number] Test Date: 2018-06-28 Pat Name: Homar Harris Department: 115 Room: 3A11 Gender: M Supervisor Tubing: : 1930 Requested By: Ricardo Moya Order Number: [id number] Reading MD: Javid English Measurements Intervals [place] Rate: 92 P: [place]: 0 QRS: 36 QRSD: 130 T: 20 QT: 368 QTc: 418 Interpretive Statements SINUS RHYTHM WITH PACs RIGHT BUNDLE BRANCH BLOCK Electronically Signed On 07-01-2018 17:47:24 EDT by Javid English
[2018-07-02 06:01] LABS: Eosinophils % 1.2 %; Hematocrit 23.5 % (37.5-50.1); Hemoglobin 7.7 g/dL (12.9-16.9); Lymphocytes # 0.5 K/mcL (0.6-4.6); Mean Corpuscular HGB Conc 32.8 g/dL (31.6-35.5); Mean Corpuscular Volume 97.5 fL (83.0-100.0); Mean Platelet Volume 11.4 fL (9.4-12.4); Monocytes % 4.7 %; Neutrophils # 0.3 K/mcL (1.6-8.9); Red Blood Count 2.41 M/mcL (4.19-5.50); Red Cell Distribution Width 17.4 % (11.5-14.5); Segmented Neutrophils % 37.1 %
[2018-07-02 06:15] LABS: BUN/Creatinine Ratio 23 (6-26); Blood Urea Nitrogen 20 mg/dL (8-23); Calcium 8.4 mg/dL (8.6-10.3); Carbon Dioxide 22 mEq/L (23-29); Chloride 101 mEq/L (98-107); Glucose 196 mg/dL (70-105); Osmolality,Calculated 282 (280-300); Potassium 3.9 mEq/L (3.5-5.1); Sodium 132 mEq/L (136-145); eGFR For Non-African Americans > 60 (> 60)
[2018-07-02 06:47] LABS: Platelet Count 74 K/mcL (140-400)
[2018-07-02] MEDS: Budesonide/Formoterol 80/4.5 MDI IH SCH ×2 (07:51→19:51)
[2018-07-02] MEDS: Insulin DETEMIR 100 UNIT/ML X5UNITS SQ SCH ×2 (08:49→21:45)
[2018-07-02] MEDS: Folic Acid 1 MG TABLET PO SCH (08:49)
[2018-07-02] MEDS: Insulin LISPRO 300 UNITS/3 ML VIAL SQ SCH ×4 (08:49→20:35)
[2018-07-02] MEDS: Isosorbide MONOnitrate (24 HR) 30 MG TAB.ER.24H PO SCH (08:50)
[2018-07-02] MEDS: Aspirin Enteric Coated 81 MG Tablet PO SCH (08:50)
[2018-07-02] MEDS: Metoprolol XL (24 HR) Succ 50 MG TAB.ER.24H PO SCH (08:50)
[2018-07-02] MEDS: amLODIPine 5 MG TABLET PO SCH (08:50)
[2018-07-02 11:25] LABS: Platelet Estimate Decreased (Normal)
--- NOTE | 2018-07-02 12:08 | Internal Med Progress Note ---
Hospitalist Progress Note - Encounter Date of Encounter: 07/02/18 Time of Encounter: 12:05 - Subjective Interval History: he reports of fatigue that is somewhat better than yesterday. he reports that he feels weak, has no appetite. he denies fever, chills, N/v/D, CP, SOb, palpitations. no complaints at this time - Exam Vitals: Temp Pulse Resp BP Pulse Ox 98.4 F 86 16 108/65 93 07/02/18 11:00 07/02/18 11:07/02/18 11:07/02/18 11:07/02/18 11:00 Exam: General: Well-developed male, lying comfortably in bed in no acute distress, looks ill, pale HEEENT: AT/NC, conjunctiva pallor Skin: Warm and supple Chest: Normal thoracic expansion. Normal breath sounds. Clear to auscultation. Heart: Normal S1 & S2; rhythmic. No rubs or murmurs. Abdomen: Non-distended, soft and nontender, no organemegally noted, BS +ve Extremities: No clubbing, cyanosis or edema. No calf tenderness. Normal distal pulses. Normal ROM; Neurological: Awake, alert and oriented to person, place and time. No focal deficits. Psych: Affect appropriate. - Assessment and Plan (1) Neutropenic fever Current Visit: Yes Status: Suspected Assessment and Plan: neutropenic precautions no fever spikes overnight blood cultures remain negative. Urinalysis shows no evidence of infection. Chest x-ray shows no focal infiltrates. Oncology on board; underwent bone marrow biopsy 07/01/18 IV Abx were discontinued on 07/01/18 Abs neutrophil counts are 0.3 (2) Hematoma of occipital surface of head Current Visit: Yes Status: Acute Assessment and Plan: was found to have hematoma on CT head asymptomatic currently will continue to monitor avoid Antiplatelet and anticoagulation (3) Pancytopenia Current Visit: Yes Status: Acute Assessment and Plan: Patient is noted to have normal white count until December 2017, he is noted to have downtrending white count since February 2018. Similar changes with Hb and platelet count; s/p bone marrow biopsy 07/01/18 F/up Oncology recommendations; Serum vitamin B12 and noted to be low, started on supplements. FA level higher than normal; PT/OT evaluation recommend ECF placement; patient continues to have generalized weakness- will continue with PT/OT while in hospital (4) Sepsis Current Visit: Yes Status: Ruled-out Assessment and Plan: Presented with fever, tachycardia, leukopenia, no source of infection identified as mentioned above. (5) Weakness Current Visit: Yes Status: Acute Assessment and Plan: some marcia francis yesterday Likely related to underlying anemia. TSH normal; Continue to monitor hemoglobin. Physical and occupational therapy evaluation recommend ECF placement; social research assistant consulted; (6) Diabetes mellitus Current Visit: Yes Status: Chronic Assessment and Plan: Continue current regimen of basal bolus insulin. Hemoglobin A1c 7.4%; Continue Accu-Chek blood glucose monitoring. Hold oral hypoglycemic agents in the hospital. Diabetic diet. (7) Hypertension Current Visit: Yes Status: Chronic Assessment and Plan: Known History of Hypertension - Will continue home meds - Continue to Monitor (8) Hyperlipidemia Current Visit: Yes Status: Chronic Assessment and Plan: Known History of Hyperlipidemia - Continue home meds (9) GERD (gastroesophageal reflux disease) Current Visit: Yes Status: Chronic Assessment and Plan: Known History of GERD - Continue home meds (10) CAD (coronary artery disease) Current Visit: Yes Status: Chronic Assessment and Plan: Continue aspirin, beta addison, statin. (11) DVT prophylaxis Current Visit: Yes Status: Acute Assessment and Plan: on SCds ( thrombocytopenia and anemia) - Time Spent with Patient Total time spent is greater than 50% in coordination of care (as documented) at patient's floor/unit and/or counseling patient: Internal Medicine: Result - Labs CBC & Chem 7: 07/02/18 05:07 07/02/18 05:07 Labs: Short CBC 07/02/18 Range/Units 05:07 WBC 0.9 L* (4.3-11.1) K/mcL Hgb 7.7 L (12.9-16.9) g/dL Hct 23.5 L (37.5-50.1) % Plt Count 74 L (140-400) K/mcL Neutrophils # 0.3 L (1.6-8.9) K/mcL BMP 07/02/18 05:07 Sodium 132 L Potassium 3.9 Chloride 101 Carbon Dioxide 22 L BUN 20 Creatinine 0.87 Glucose 196 H Calcium 8.4 L - ABG Interpretation ABG results: PT/INR, D-dimer PT 16.1 Seconds (9.4-12.1) H 06/28/18 17:35 - Impressions Impressions Head CT 07/01/18 18:25 IMPRESSION: 1. No acute intracranial abnormality. 2. Sequela of chronic microvascular ischemic changes. 3. Soft tissue hematoma overlying the left occipital bone measuring 2.5 x 1.8 x 3.7 cm D/ / Claude Ocasio / Claude Ocasio Interpreting Provider: Claude Ocasio Consult Discharge Plan - Plan Referrals: Edmundo Hill, DRY TRANSFER MAN [Non-Partnered Physician] - (4) Sepsis Qualifiers: Sepsis type: sepsis due to unspecified organism Qualified Code(s): A41.9 - Sepsis, unspecified organism (6) Diabetes mellitus Qualifiers: Diabetes mellitus type: type 2 Diabetes mellitus [facility] insulin use: without long term care pharmacist use Diabetes mellitus complication status: with hyperglycemia Qualified Code(s): E11.65 - Type 2 diabetes mellitus with hyperglycemia (7) Hypertension Qualifiers: Hypertension type: essential hypertension Qualified Code(s): I10 - Essential (primary) hypertension (8) Hyperlipidemia Qualifiers: Hyperlipidemia type: unspecified Qualified Code(s): E78.5 - Hyperlipidemia, unspecified (9) GERD (gastroesophageal reflux disease) Qualifiers: Esophagitis presence: esophagitis presence not specified Qualified Code(s): K21.9 - Gastro-esophageal reflux disease without esophagitis (10) CAD (coronary artery disease) Qualifiers: Coronary Disease-Associated Artery/Lesion type: bypass graft [place] vs. transplanted heart: [place] heart Associated angina: without angina Qualified Code(s): I25.810 - Atherosclerosis of coronary artery bypass graft(s) without angina pectoris
--- NOTE | 2018-07-02 15:52 | Oncology Inp Progress Note ---
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 Further immunophenotyping and cytogenetics are pending. Treatment options including chemotherapeutic agents can be considered although given the patient's advanced age and multiple comorbidities he may not be a candidate, nor wish, to undergo further treatment. Once final pathologic diagnosis is return we will discuss with this patient and family regarding treatment options and goals of care. This was discussed with the patient and he verbalized understanding of his diagnosis and prognosis. Qualifiers: Leukemia Active/Remission status: without remission Qualified Code(s): C92.00 - Acute myeloblastic leukemia, not having achieved remission (2) B12 deficiency Current Visit: Yes Status: Acute Assessment and plan: Continue B12 supplementation. Oncology: Subj Interval history: Patient seen and examined at bedside. Patient reports that he feels fatigued today. He reports fall overnight. He reports continued decreased appetite and poor oral intake. Denies fever, chills, any evidence of bleeding. - Constitutional Vitals: Vital Signs Temp Pulse Resp BP Pulse Ox 07/02/18 11:00 98.4 F 86 16 108/65 93 07/02/18 07:51 16 96 07/02/18 07:47 98.0 F 88 18 134/68 93 07/02/18 03:47 98.8 F 91 20 125/77 91 07/01/18 22:45 16 88 07/01/18 19:19 98.9 F 90 16 128/70 92 07/01/18 18:10 97.5 F L 98 16 148/81 92 Intake and Output 07/01/18 07/02/18 07/02/18 23:59 07:59 15:59 Intake Total 360 / 360 0 / 0 320 / 320 Output Total 400 / 400 200 / 200 Balance 360 / 360 -400 / -400 120 / 120 Intake: Oral 360 / 360 0 / 0 320 / 320 Output: Urine 400 / 400 200 / 200 Other: Meal Dinner Lunch Percent of Meal Consumed 50% 10% Blood Glucose* 197 213 206 General appearance: no acute distress - Respiratory Respiratory exam: Present: CTAB - GI/Abdominal GI/Abdominal exam: Present: soft. Absent: tenderness - Extremities Exam Extremities exam: Present: pedal edema (Trace lower extremity bilaterally) - Neurological Exam Neurological exam: Present: alert, oriented X3, no focal deficits Oncology: Obj Data - Labs CBC & Chem 7: 07/02/18 05:07 07/02/18 05:07 Labs: Laboratory Results - last 24 hr 07/01/18 07/01/18 07/01/18 05:36 16:10 21:28 WBC RBC Hgb Hct MCV MCH MCHC RDW Plt Count MPV Immature Gran % Seg Neutrophils % Lymphocytes % Monocytes % Eosinophils % Basophils % Neutrophils # Lymphocytes # Monocytes # Eosinophils # Basophils # Platelet Estimate Sodium Potassium Chloride Carbon Dioxide BUN Creatinine Est GFR ( Amer) Est GFR (Non-Af Amer) BUN/Creatinine Ratio Glucose POC Glucose 182 H 194 H 197 H Calculated Osmolality Calcium 07/02/18 07/02/18 05:07 05:07 WBC 0.9 L* RBC 2.41 L Hgb 7.7 L Hct 23.5 L MCV 97.5 MCH 32.0 MCHC 32.8 RDW 17.4 H Plt Count 74 L MPV 11.4 Immature Gran % 0.0 Seg Neutrophils % 37.1 Lymphocytes % 57.0 Monocytes % 4.7 Eosinophils % 1.2 Basophils % 0.0 Neutrophils # 0.3 L Lymphocytes # 0.5 L Monocytes # 0.0 Eosinophils # 0.0 Basophils # 0.0 Platelet Estimate Decreased L Sodium 132 L Potassium 3.9 Chloride 101 Carbon Dioxide 22 L BUN 20 Creatinine 0.87 Est GFR ( Amer) > 60 Est GFR (Non-Af Amer) > 60 BUN/Creatinine Ratio 23 Glucose 196 H POC Glucose Calculated Osmolality 282 Calcium 8.4 L - Impressions Impressions Head CT 07/01/18 18:25 IMPRESSION: 1. No acute intracranial abnormality. 2. Sequela of chronic microvascular ischemic changes. 3. Soft tissue hematoma overlying the left occipital bone measuring 2.5 x 1.8 x 3.7 cm D/ / Claude Ocasio / Claude Ocasio Interpreting Provider: Claude Ocasio - ABG Interpretation ABG results: PT/INR, D-dimer PT 16.1 Seconds (9.4-12.1) H 06/28/18 17:35 Consult Discharge Plan - Plan Referrals: Edmundo Hill, CATHETER FINISHER AND INSPECTOR [Non-Partnered Physician] - <Scott Marcano - Last Filed: 07/02/18 17:01> Date of Encounter: 07/02/18 (1) Pancytopenia Current Visit: Yes Status: Acute Oncology: Subj Interval history: Bone marrow aspiration biopsy preliminary findings reviewed with patient and later with his and [id number]. 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 I briefly outlined the prognosis with and without treatment and the risks associated with treatment itself. He is in a very poor performance status, hospice care was recommended. His is also ill , receiving chemotherapy at [facility]. I examined this patient and my medical decision-making was reviewed with Dr Tino Saldana, resident physician. I agree with the documented findings, disposition and treatment plan as described except to the extent set forth below. - Constitutional Vitals: Vital Signs Temp Pulse Resp BP Pulse Ox 07/02/18 16:24 98.1 F 85 18 129/69 95 07/02/18 11:00 98.4 F 86 16 108/65 93 07/02/18 07:51 16 96 07/02/18 07:47 98.0 F 88 18 134/68 93 07/02/18 03:47 98.8 F 91 20 125/77 91 07/01/18 22:45 16 88 07/01/18 19:19 98.9 F 90 16 128/70 92 07/01/18 18:10 97.5 F L 98 16 148/81 92 Intake and Output 07/02/18 07/02/18 07/02/18 07:59 15:59 23:59 Intake Total 0 / 0 320 / 320 0 / 0 Output Total 400 / 400 200 / 200 200 / 200 Balance -400 / -400 120 / 120 -200 / -200 Intake: Oral 0 / 0 320 / 320 0 / 0 Output: Urine 400 / 400 200 / 200 200 / 200 Other: Meal Lunch Percent of Meal Consumed 10% Blood Glucose* 213 206 Oncology: Obj Data - Labs CBC & Chem 7: 07/02/18 05:07 07/02/18 05:07 Labs: Laboratory Results - last 24 hr 07/01/18 07/01/18 07/02/18 05:36 21:28 05:07 WBC 0.9 L* RBC 2.41 L Hgb 7.7 L Hct 23.5 L MCV 97.5 MCH 32.0 MCHC 32.8 RDW 17.4 H Plt Count 74 L MPV 11.4 Immature Gran % 0.0 Seg Neutrophils % 37.1 Lymphocytes % 57.0 Monocytes % 4.7 Eosinophils % 1.2 Basophils % 0.0 Neutrophils # 0.3 L Lymphocytes # 0.5 L Monocytes # 0.0 Eosinophils # 0.0 Basophils # 0.0 Platelet Estimate Decreased L Sodium Potassium Chloride Carbon Dioxide BUN Creatinine Est GFR ( Amer) Est GFR (Non-Af Amer) BUN/Creatinine Ratio Glucose POC Glucose 182 H 197 H Calculated Osmolality Calcium 07/02/18 05:07 WBC RBC Hgb Hct MCV MCH MCHC RDW Plt Count MPV Immature Gran % Seg Neutrophils % Lymphocytes % Monocytes % Eosinophils % Basophils % Neutrophils # Lymphocytes # Monocytes # Eosinophils # Basophils # Platelet Estimate Sodium 132 L Potassium 3.9 Chloride 101 Carbon Dioxide 22 L BUN 20 Creatinine 0.87 Est GFR ( Amer) > 60 Est GFR (Non-Af Amer) > 60 BUN/Creatinine Ratio 23 Glucose 196 H POC Glucose Calculated Osmolality 282 Calcium 8.4 L - Impressions Impressions Head CT 07/01/18 18:25 IMPRESSION: 1. No acute intracranial abnormality. 2. Sequela of chronic microvascular ischemic changes. 3. Soft tissue hematoma overlying the left occipital bone measuring 2.5 x 1.8 x 3.7 cm D/ / Claude Ocasio / Claude Ocasio Interpreting Provider: Claude Ocasio - ABG Interpretation ABG results: PT/INR, D-dimer PT 16.1 Seconds (9.4-12.1) H 06/28/18 17:35 Inpatient Charges Provider: Dr. Lizzy Marcano Follow Up: [id number]
[2018-07-02] MEDS: Calcium Acetate 667 MG CAPSULE PO SCH (17:08)
[2018-07-03] MEDS: Insulin LISPRO 300 UNITS/3 ML VIAL SQ SCH ×4 (07:35→21:58)
[2018-07-03] MEDS ORDERED: Azithromycin 500 MG in D5% in Water 250 ML IVPB SCH (08:00)
[2018-07-03] MEDS ORDERED: Aztreonam 500 MG in 0.9 % Sodium Chloride 50 ML IVPB SCH (08:00)
[2018-07-03] MEDS: Budesonide/Formoterol 80/4.5 MDI IH SCH ×2 (08:04→20:09)
[2018-07-03 08:10] LABS: BUN/Creatinine Ratio 22 (6-26); Blood Urea Nitrogen 17 mg/dL (8-23); Calcium 8.4 mg/dL (8.6-10.3); Carbon Dioxide 22 mEq/L (23-29); Chloride 101 mEq/L (98-107); Glucose 164 mg/dL (70-105); Magnesium 1.7 mg/dL (1.6-2.6); Osmolality,Calculated 279 (280-300); Phosphorous 2.4 mg/dL (2.7-4.5); Potassium 3.8 mEq/L (3.5-5.1); Sodium 132 mEq/L (136-145); eGFR For Non-African Americans > 60 (> 60)
--- NOTE | 2018-07-03 08:15 | Event Note ---
Date of Encounter: 07/03/18 Time of Encounter: 08:08 I discussed with patient about his medical condition/ status. He reported that all his wishes were stated and his living well. i reviewed his living will from his chart Which states if he is in a terminal condition and unable to make his own healthcare decisions or if he is in a permanently unconscious state and there is no reasonable possibility that he will regain the capacity to make informed decisions, then he directs his physician to let him naturally, providing only comfort care. He does not want any life sustaining treatment including CPR He would like to withhold or withdraw artificial aortic neurologically supplied nutrition or hydration provided that he is in an permanently unconscious state He also would like to issue a DNR order and would like no actions to postpone his that He would like comfort care and pain relief he also wanted me to discuss his plan of care with his daughter lela pool [phone] who is his medical power of director of loss prevention. i spoke to her and she agrrees with DNR/DNI and comfort care. I discussed that palliative care consult was placed for further recommendation for pain management and possibly hospice. i also discussed that he does have a new pleural effusion/fever and that Abx were restarted. she agrees with Abx use. emotional support provided to patient and daughter
[2018-07-03 08:27] LABS: Hemoglobin 7.6 g/dL (12.9-16.9); Immature Platelets 7.2 % (1.1-6.1); Mean Corpuscular Hemoglobin 31.8 pg (28.0-33.3); Mean Corpuscular Volume 96.2 fL (83.0-100.0); Mean Platelet Volume 11.1 fL (9.4-12.4); Red Blood Count 2.39 M/mcL (4.19-5.50); Red Cell Distribution Width 17.3 % (11.5-14.5)
[2018-07-03] MEDS: Folic Acid 1 MG TABLET PO SCH (09:00)
[2018-07-03] MEDS: Isosorbide MONOnitrate (24 HR) 30 MG TAB.ER.24H PO SCH (09:00)
[2018-07-03] MEDS: Aspirin Enteric Coated 81 MG Tablet PO SCH (09:00)
[2018-07-03] MEDS: Calcium Acetate 667 MG CAPSULE PO SCH ×3 (09:00→19:06)
[2018-07-03] MEDS: Metoprolol XL (24 HR) Succ 50 MG TAB.ER.24H PO SCH (09:00)
[2018-07-03] MEDS: amLODIPine 5 MG TABLET PO SCH (09:00)
[2018-07-03] MEDS: Insulin DETEMIR 100 UNIT/ML X5UNITS SQ SCH ×2 (09:34→22:01)
--- NOTE | 2018-07-03 10:37 | Palliative - Consult Note ---
Date of Encounter: 07/03/18 Time of Encounter: 10:35 - Assessment and Plan (1) Abdominal pain Current Visit: Yes Status: Acute Assessment and plan: He has [facility] available, but seemed unaware and has not asked for this. He c/o lower abd pain - denies constipation. Educated on trialing Homeland, asked nurse to provide medication as soon as possible. If not effective, will change opioid. Qualifiers: Abdominal location: unspecified location Qualified Code(s): R10.9 - Unspecified abdominal pain (2) Dyspnea Current Visit: Yes Status: Acute Qualifiers: Dyspnea type: shortness of breath Qualified Code(s): R06.02 - Shortness of breath; R06.00 - Dyspnea, unspecified; R06.01 - Orthopnea (3) AML (acute myeloid leukemia) Current Visit: Yes Status: Acute Assessment and plan: Oncology following. Bone marrow biopsy completed 07/01 - final pathology remains pending. Appears to be AML. Qualifiers: Leukemia Active/Remission status: without remission Qualified Code(s): C92.00 - Acute myeloblastic leukemia, not having achieved remission (4) Advance care planning Current Visit: Yes Status: Acute Assessment and plan: Met with patient and daughter, FRANCES Saeed. Advanced directives are already completed, and code status/DNR form already completed. Patient would like to go home with hospice care. He states he does not want to come back to hospital , does not want transfusions, and does not want any treatment for suspected AML. HE states that he just wants to be home and spend quality time with his , and hopes that they eventually pass away together. [facility] has already been contacted by social and human services assistant for referral information, and hospice nurse will be out later to discuss in more detail with him. List of DME's needed obtained from daughter, and called to [place] disability services coordinator. D/W Dr. Henson. Anticipate discharge either later today or tomorrow am. Palliative-CN HPI - Data of Consult Consult date: 07/03/18 Requesting Physician: Priyanka Henson MD Primary Care Provider: PCP NONE - Consult Narrative History of present illness: Mr. Harris is a 87 year old male who presented to the ER with increasing weakness , fevers, myalgias. He states that for the last several months he has had increasing shortness of breath, decreased appetite, little endurance, syncopal episodes, and some falls.Other pertinent medical history includes CVA, Diabetes , HTN, depression, Hyperlipidemia, Cardiac stents x2, and orthopedic surgeries. Workup on ER visit demonstrated neutropenia with WBC 1.3 and he was admitted for further care and workup. Oncology consult was obtained, and bone marrow biopsy was performed on 07/01. 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 Has had intermittent fevers throughout stay. He lives with his , who has metastatic cancer, and has been on immunotherapy. He states her disease has not improved, and she probably only has weeks to live. He has been her caregiver, as all of his children are working, but states they take turns checking up on them. Upon my visit, he is up in chair drinking juice. C/o abd pain "aching" and "feels like a band" across lower abdomen in nature, 04/14. No precipating/ alleviating factors noted. Denies constipation - last bm 3 days ago and states he is not eating much. C/o generalized weakness and lethargy, and shortness of breath with any exertion. Denies nausea/vomiting/anxiety. CC: Priyanka Henson MD Past Med Surg Social Fam HX - Past Medical History Medical history: CVA, diabetes, GERD, hyperlipidemia, hypertension Additional medical history: leukopenia Psychiatric history: depression - Past Surgical History Additional surgical history: laminectomy. hemorrhoidectomy. tonsillectomy. right heel spur removal. heart stents x2 - Social History Smoking Status: Former smoker Smokeless Tobacco Status: No Alcohol use: rarely Drug use: none - Family History Mother Living Status: Father Living Status: Medications and Allergies Aspirin [Adult Low Dose Aspirin EC] 81 mg PO DAILY 02/27/16 [History] Omeprazole [PriLOSEC] 40 mg PO DAILY 02/27/16 [History] Simvastatin [Zocor] 40 mg PO HS 02/27/16 [History] amLODIPine [Norvasc] 10 mg PO DAILY 02/27/16 [History] metFORMIN [Glucophage] 1,000 mg PO QAM 02/27/16 [History] Metoprolol Succinate [Toprol Xl] 50 mg PO DAILY 03/05/18 [History] Nitroglycerin [Nitrostat] 0.4 mg SL DAILY 03/05/18 [History] metFORMIN [Glucophage] 1,000 mg PO HS 03/05/18 [History] GlipiZIDE [Glipizide ER] 10 mg PO BID 06/28/18 [History] Isosorbide MONOnitrate [Isosorbide Mononitrate] 30 mg PO DAILY 06/28/18 [History ] Tamsulosin HCl [Flomax] 0.4 mg PO DAILY 06/28/18 [History] Venlafaxine HCl 50 mg PO DAILY 06/28/18 [History] metFORMIN [Glucophage] 500 mg PO 1200 06/28/18 [History] 3 Allergy/AdvReac Type Severity Reaction Status Date / Time Penicillins Allergy Hives Verified 06/28/18 12:14 - Constitutional Constitutional ROS PAL: decreased appetite, chills, malaise - Respiratory Respiratory: dyspnea on exertion - Neurological Neurological ROS: frequent falls, weakness - Psychiatric Psychiatric general PM: depression, difficulty concentrating, memory loss Palliative Care-Exam - Constitutional Vitals: Temp Pulse Resp BP Pulse Ox 99.4 F 97 16 145/66 90 07/03/18 07:21 07/03/18 07:21 07/03/18 07:21 07/03/18 07:21 07/03/18 07:21 General appearance: Present: no acute distress - Head Head Exam: Present: normal inspection, normocephalic - Respiratory Respiratory exam: Present: decreased breath sounds - Cardiovascular Cardiovascular exam: Present: +S1, +S2 - GI/Abdominal Exam GI/Abdominal exam: Present: tenderness additional comments: Tenderness noted RLQ - Extremities Exam Extremities exam: Present: normal capillary refill, normal inspection - Neurological Exam Neurological exam: Present: alert, oriented X3, strengths equal and symetr throughout - Psychiatric Psychiatric exam: Present: flat affect - Skin Skin exam: Present: dry, warm Internal Medicine - CN: Reslt - Labs CBC & Chem 7: 07/03/18 07:08 07/03/18 07:08 Labs: Short CBC 07/02/18 07/03/18 Range/Units 05:07 07:08 WBC 0.8 L* (4.3-11.1) K/mcL Hgb 7.6 L (12.9-16.9) g/dL Hct 23.0 L (37.5-50.1) % Plt Count 73 L (140-400) K/mcL Neutrophils # 0.3 L (1.6-8.9) K/mcL BMP 07/03/18 07:08 Sodium 132 L Potassium 3.8 Chloride 101 Carbon Dioxide 22 L BUN 17 Creatinine 0.76 Glucose 164 H Calcium 8.4 L - ABG Interpretation ABG results: PT/INR, D-dimer PT 16.1 Seconds (9.4-12.1) H 06/28/18 17:35 - Impressions Impressions Chest X-Ray 07/03/18 05:16 IMPRESSION: Moderate volume right pleural effusion with basilar opacities which could reflect atelectasis and/or airspace disease. D/ / Price Johnson / Price Johnson Interpreting Provider: Price Johnson Consult Discharge Plan - Plan Referrals: Edmundo Hill, CLIENT CONSULTANT [Non-Partnered Physician] - Palliative Quality Palliative Quality: Screen for Code Status: Yes, Screen for Goals of Care: Yes, Screen for Pain: Yes, If Pain Regimen Started, Initiate Bowel Regimen: Yes, Screen for Nausea/Vomitting: Yes Code Status: 07/03/18 08:15 DNR [Resuscitation Status: Active] [RES] Routine Comment: Resuscitation Status: [id number]
[2018-07-03] MEDS: *HR* HYDROcodone/Acet 5/325 mg TABLET PO PRN (11:39)
[2018-07-03] MEDS ORDERED: Aminoglycoside Consult 1 EACH MC ONE (12:24)
[2018-07-03] MEDS ORDERED: Levofloxacin 750 MG/150 ML 750 MG/150 ML BAG IVPB SCH (17:00)
--- NOTE | 2018-07-03 18:34 | Internal Med Progress Note ---
Hospitalist Progress Note - Encounter Date of Encounter: 07/03/18 Time of Encounter: 08:00 - Subjective Interval History: he reports that he had difficulty breathing over night. understands that he has only a few weeks to a few months left to live and would like to return home to his . he does not want any "heroic measures". would like me to discuss his health status and decisions with daughter/power of industrial maintenance electrician. denies chills, n/v/D, cough, syncope, LOC. - Exam Vitals: Temp Pulse Resp BP Pulse Ox 98.9 F 87 16 128/69 90 07/03/18 15:17 07/03/18 15:17 07/03/18 15:17 07/03/18 15:17 07/03/18 15:17 Exam: General: Well-developed male, lying comfortably in bed in no acute distress, looks ill, pale HEEENT: AT/NC, conjunctiva pallor Skin: Warm and supple Chest: decreased breath sounds and crackles at the right MAL Heart: Normal S1 & S2; rhythmic. No rubs or murmurs. Abdomen: Non-distended, soft and nontender, no organemegally noted, BS +ve Extremities: No clubbing, cyanosis or edema. No calf tenderness. Normal distal pulses. Normal ROM; Neurological: Awake, alert and oriented to person, place and time. No focal deficits. Psych: Affect appropriate. - Assessment and Plan (1) Neutropenic fever Current Visit: Yes Status: Suspected Assessment and Plan: neutropenic precautions spiked fevers over night was hypoxic- CXR shows new right sided pleural effusion blood cultures remain negative. will sned pneumonia and legionella antigens started on vancomycin, cefepime and levaquin Urinalysis shows no evidence of infection. Oncology on board; underwent bone marrow biopsy 07/01/18- AML with 70% blasts Treatment options including chemotherapeutic agents can be considered although given the patient's advanced age and multiple comorbidities he may not be a candidate, nor wish, to undergo further treatment. patient understands poor prognosis emotional support given code status changed DNR/DNI CC palliative consulted for hospice placement (2) Goals of care, counseling/discussion Current Visit: Yes Status: Acute Assessment and Plan: spoke to patient and daughter/power of industrial maintenance electrician extensively code status was changed to DNR/DNI CC palliative consulted for hospice placement emotional support given rest of management as per palliative recommendations (3) Hematoma of occipital surface of head Current Visit: Yes Status: Acute Assessment and Plan: was found to have hematoma on CT head asymptomatic currently will continue to monitor avoid Antiplatelet and anticoagulation (4) Pancytopenia Current Visit: Yes Status: Acute Assessment and Plan: Patient is noted to have normal white count until December 2017, he is noted to have downtrending white count since February 2018. Similar changes with Hb and platelet count; s/p bone marrow biopsy 07/01/18- AML 70% blasts palliative consulted for hospice placement l (5) Sepsis Current Visit: Yes Status: Ruled-out Assessment and Plan: Presented with fever, tachycardia, leukopenia, new right sided pleural effusion fever and neutropenia on vancomycin, cefepime and levaquin bcx from admission remain negative now comfort care / DNR/DNI for hospice placement as he has AML with 70% blasts (6) Weakness Current Visit: Yes Status: Acute Assessment and Plan: secondary to AML with 70% blasts - extremely poor prognosis for home hospice ; (7) Diabetes mellitus Current Visit: Yes Status: Chronic Assessment and Plan: Continue current regimen of basal bolus insulin. Hemoglobin A1c 7.4%; Continue Accu-Chek blood glucose monitoring. Hold oral hypoglycemic agents in the hospital. Diabetic diet. (8) Hypertension Current Visit: Yes Status: Chronic Assessment and Plan: Known History of Hypertension - Will continue home meds - Continue to Monitor (9) Hyperlipidemia Current Visit: Yes Status: Chronic Assessment and Plan: Known History of Hyperlipidemia - Continue home meds (10) GERD (gastroesophageal reflux disease) Current Visit: Yes Status: Chronic Assessment and Plan: Known History of GERD - Continue home meds (11) CAD (coronary artery disease) Current Visit: Yes Status: Chronic Assessment and Plan: Continue aspirin, beta addison, statin. (12) DVT prophylaxis Current Visit: Yes Status: Acute Assessment and Plan: on SCds ( thrombocytopenia and anemia) - Time Spent with Patient Total time spent is greater than 50% in coordination of care (as documented) at patient's floor/unit and/or counseling patient: Greater than 35 minutes Plan of Care Discussed with: family Internal Medicine: Result - Labs CBC & Chem 7: 07/03/18 07:08 07/03/18 07:08 Labs: Short CBC 07/03/18 Range/Units 07:08 WBC 0.8 L* (4.3-11.1) K/mcL Hgb 7.6 L (12.9-16.9) g/dL Hct 23.0 L (37.5-50.1) % Plt Count 73 L (140-400) K/mcL BMP 07/03/18 07:08 Sodium 132 L Potassium 3.8 Chloride 101 Carbon Dioxide 22 L BUN 17 Creatinine 0.76 Glucose 164 H Calcium 8.4 L - ABG Interpretation ABG results: PT/INR, D-dimer PT 16.1 Seconds (9.4-12.1) H 06/28/18 17:35 - Impressions Impressions Chest X-Ray 07/03/18 05:16 IMPRESSION: Moderate volume right pleural effusion with basilar opacities which could reflect atelectasis and/or airspace disease. D/ / Price Johnson / Price Johnson Interpreting Provider: Price Johnson Consult Discharge Plan - Plan Referrals: Edmundo Hill, STRATEGIC DEBRIEFING OFFICER [Non-Partnered Physician] - (5) Sepsis Qualifiers: Sepsis type: sepsis due to unspecified organism Qualified Code(s): A41.9 - Sepsis, unspecified organism (7) Diabetes mellitus Qualifiers: Diabetes mellitus type: type 2 Diabetes mellitus [facility] insulin use: without lobsterman use Diabetes mellitus complication status: with hyperglycemia Qualified Code(s): E11.65 - Type 2 diabetes mellitus with hyperglycemia (8) Hypertension Qualifiers: Hypertension type: essential hypertension Qualified Code(s): I10 - Essential (primary) hypertension (9) Hyperlipidemia Qualifiers: Hyperlipidemia type: unspecified Qualified Code(s): E78.5 - Hyperlipidemia, unspecified (10) GERD (gastroesophageal reflux disease) Qualifiers: Esophagitis presence: esophagitis presence not specified Qualified Code(s): K21.9 - Gastro-esophageal reflux disease without esophagitis (11) CAD (coronary artery disease) Qualifiers: Coronary Disease-Associated Artery/Lesion type: bypass graft [place] vs. transplanted heart: [place] heart Associated angina: without angina Qualified Code(s): I25.810 - Atherosclerosis of coronary artery bypass graft(s) without angina pectoris
[2018-07-03] MEDS: Cefepime HCl 2,000 MG in Water for inj. (sterile) 20 ML 20 ML IVP SCH ×2 (19:05→23:38)
--- NOTE | 2018-07-03 22:43 | Oncology Inp Progress Note ---
Date of Encounter: 07/03/18 Time of Encounter: 18:10 (1) Pancytopenia Current Visit: Yes Status: Acute Assessment and plan: Preliminary BM bx c/w AML. Discussed aggressive nature of AML and discussed treatment options. He is not interested in pursuing treatment and home hospice has been arranged which I think is best for this patient. I care for his who has advanced NSCLC. We discussed utilizing hospice at our visit earlier this week as she, too, is frail and debilitated. Family desired palliative approach. Patient desired to continue on with therapy. This will be discussed further w/ her as well moving forward. Oncology: Subj Interval history: Feeling better today. Breathing more comfortably and energy is better. Eating some today. Appetite is down. No fever or chills. Planning to d/c home with hospice tomorrow. - Constitutional Vitals: Vital Signs Temp Pulse Resp BP Pulse Ox 07/03/18 21:28 90 07/03/18 20:09 18 92 07/03/18 19:12 99.1 F 100 14 148/51 95 07/03/18 15:17 98.9 F 87 16 128/69 90 07/03/18 08:04 16 92 07/03/18 07:21 99.4 F 97 16 145/66 90 07/03/18 03:42 100.6 F H 101 16 141/73 88 Intake and Output 07/03/18 07/03/18 07/04/18 08:59 16:59 00:59 Intake Total 1090 / 1090 20 / 20 Output Total 200 / 200 50 / 50 Balance -200 / -200 1090 / 1090 -30 / -30 Intake: IV Fluids 550 / 550 20 / 20 Maxipime 2,000 MG In Water for 20 / 20 inj. (sterile) 20 ML @ 300 mls/ hr IVP Q8HR [facility] Rx#:[id number] Zithromax 500 mg In Dextrose 5% 250 / 250 250 ML @ 252 mls/hr IVPB Q24H [facility] Rx#:[id number] Azactam 500 MG In 0.9 % Sodium 50 / 50 Chloride 50 ML @ 100 mls/hr IVPB Q8HR [facility] Rx#:[id number] Vancocin 1,500 MG In 0.9 % 250 / 250 Sodium Chloride 250 ML @ 167 mls/hr IVPB Q12H [facility] Rx#: [id number] Oral 540 / 540 0 / 0 Output: Urine 200 / 200 50 / 50 Other: Meal Lunch Percent of Meal Consumed 0% # Voids 1 Blood Glucose* 163 186 182 General appearance: cooperative, no acute distress - Head Head exam: Present: atraumatic, normal inspection, normocephalic - Eye Eye exam: Present: normal appearance, PERRL, sclera anicteric - ENT ENT exam: Present: mucous membranes moist, normal exam, normal oropharynx - Neck Neck exam: Present: full ROM - Respiratory Respiratory exam: Present: decreased breath sounds - Cardiovascular Cardiovascular exam: Present: RRR - Extremities Exam Extremities exam: Present: full ROM, normal inspection - Neurological Exam Neurological exam: Present: alert, CN II-XII intact, oriented X3, no focal deficits Oncology: Obj Data - Labs CBC & Chem 7: 07/03/18 07:08 07/03/18 07:08 Labs: Laboratory Results - last 24 hr 07/02/18 07/02/18 07/02/18 07:43 11:19 16:22 WBC RBC Hgb Hct MCV MCH MCHC RDW Plt Count MPV Immature Plt Fraction Sodium Potassium Chloride Carbon Dioxide BUN Creatinine Est GFR ( Amer) Est GFR (Non-Af Amer) BUN/Creatinine Ratio Glucose POC Glucose 213 H 206 H 213 H Calculated Osmolality Calcium Phosphorus Magnesium 25-OH Vitamin D Total 07/02/18 07/03/18 07/03/18 20:06 07:08 07:08 WBC 0.8 L* RBC 2.39 L Hgb 7.6 L Hct 23.0 L MCV 96.2 MCH 31.8 MCHC 33.0 RDW 17.3 H Plt Count 73 L MPV 11.1 Immature Plt Fraction 7.2 H Sodium 132 L Potassium 3.8 Chloride 101 Carbon Dioxide 22 L BUN 17 Creatinine 0.76 Est GFR ( Amer) > 60 Est GFR (Non-Af Amer) > 60 BUN/Creatinine Ratio 22 Glucose 164 H POC Glucose 175 H Calculated Osmolality 279 L Calcium 8.4 L Phosphorus 2.4 L Magnesium 1.7 25-OH Vitamin D Total 07/03/18 07/03/18 07/03/18 07:08 07:24 11:27 WBC RBC Hgb Hct MCV MCH MCHC RDW Plt Count MPV Immature Plt Fraction Sodium Potassium Chloride Carbon Dioxide BUN Creatinine Est GFR ( Amer) Est GFR (Non-Af Amer) BUN/Creatinine Ratio Glucose POC Glucose 163 H 312 H Calculated Osmolality Calcium Phosphorus Magnesium 25-OH Vitamin D Total 29 L 07/03/18 16:07 WBC RBC Hgb Hct MCV MCH MCHC RDW Plt Count MPV Immature Plt Fraction Sodium Potassium Chloride Carbon Dioxide BUN Creatinine Est GFR ( Amer) Est GFR (Non-Af Amer) BUN/Creatinine Ratio Glucose POC Glucose 186 H Calculated Osmolality Calcium Phosphorus Magnesium 25-OH Vitamin D Total - Impressions Impressions Chest X-Ray 07/03/18 05:16 IMPRESSION: Moderate volume right pleural effusion with basilar opacities which could reflect atelectasis and/or airspace disease. D/ / Price Johnson / Price Johnson Interpreting Provider: Price Jonhson - ABG Interpretation ABG results: PT/INR, D-dimer PT 16.1 Seconds (9.4-12.1) H 06/28/18 17:35 Consult Discharge Plan - Plan Referrals: Edmundo Hill, PRESIDENT ERGONOMIC CONSULTING [Non-Partnered Physician] - Inpatient Charges Provider: [place]. [place]: [id number]
[2018-07-03] MEDS: Acetaminophen 325 MG TABLET PO PRN (23:37)
[2018-07-04] MEDS ORDERED: Levofloxacin 750 MG/150 ML 750 MG/150 ML BAG IVPB SCH (09:00)
[2018-07-04] MEDS: Insulin DETEMIR 100 UNIT/ML X5UNITS SQ SCH (09:18)
[2018-07-04] MEDS: Insulin LISPRO 300 UNITS/3 ML VIAL SQ SCH ×2 (09:18→11:57)
[2018-07-04] MEDS: Isosorbide MONOnitrate (24 HR) 30 MG TAB.ER.24H PO SCH (09:21)
[2018-07-04] MEDS: Metoprolol XL (24 HR) Succ 50 MG TAB.ER.24H PO SCH (09:21)
[2018-07-04] MEDS: Folic Acid 1 MG TABLET PO SCH (09:21)
[2018-07-04] MEDS: amLODIPine 5 MG TABLET PO SCH (09:21)
[2018-07-04] MEDS: Calcium Acetate 667 MG CAPSULE PO SCH ×2 (09:21→11:58)
[2018-07-04] MEDS: *HR* HYDROcodone/Acet 5/325 mg TABLET PO PRN (09:21)
[2018-07-04] MEDS: Aspirin Enteric Coated 81 MG Tablet PO SCH (09:22)
--- NOTE | 2018-07-04 09:43 | Discharge Summary ---
Orders not resulted at time of discharge: Pending orders 07/01/18 09:30 Bone Marrow, Flow & Cytogen Routine Date of Encounter: 07/04/18 Time of Encounter: 09:42 - Discharge Diagnosis (1) Neutropenic fever Priority: Primary Status: Suspected (2) AML (acute myeloblastic leukemia) Priority: Secondary Status: Acute Qualifiers: Leukemia Active/Remission status: without remission Qualified Code(s): C92.00 - Acute myeloblastic leukemia, not having achieved remission (3) Goals of care, counseling/discussion Priority: Secondary Status: Acute (4) Hematoma of occipital surface of head Priority: Secondary Status: Acute Qualifiers: Encounter type: initial encounter Qualified Code(s): S00.83XA - Contusion of other part of head, initial encounter (5) Pancytopenia Priority: Secondary Status: Acute (6) Sepsis Priority: Secondary Status: Ruled-out Qualifiers: Sepsis type: sepsis due to unspecified organism Qualified Code(s): A41.9 - Sepsis, unspecified organism (7) Weakness Priority: Secondary Status: Acute (8) Diabetes mellitus Priority: Secondary Status: Chronic Qualifiers: Diabetes mellitus type: type 2 Diabetes mellitus terminal press operator insulin use: without terminal press operator use Diabetes mellitus complication status: with hyperglycemia Qualified Code(s): E11.65 - Type 2 diabetes mellitus with hyperglycemia (9) Hypertension Priority: Secondary Status: Chronic Qualifiers: Hypertension type: essential hypertension Qualified Code(s): I10 - Essential (primary) hypertension (10) Hyperlipidemia Priority: Secondary Status: Chronic Qualifiers: Hyperlipidemia type: unspecified Qualified Code(s): E78.5 - Hyperlipidemia , unspecified (11) GERD (gastroesophageal reflux disease) Priority: Secondary Status: Chronic Qualifiers: Esophagitis presence: esophagitis presence not specified Qualified Code(s) : K21.9 - Gastro-esophageal reflux disease without esophagitis (12) CAD (coronary artery disease) Priority: Secondary Status: Chronic Qualifiers: Coronary Disease-Associated Artery/Lesion type: bypass graft [place] vs. transplanted heart: [place] heart Associated angina: without angina Qualified Code(s): I25.810 - Atherosclerosis of coronary artery bypass graft(s) without angina pectoris (13) DVT prophylaxis Priority: Secondary Status: Acute (14) Pleural effusion Priority: Secondary Status: Acute Hospital course: Mr. Harris is a 87 year old male past medical history of CVA, diabetes, GERD, hypertension, hyperlipidemia, hypertension, depression who presents to emergency department from oncology office with complaint of pancytopenia as well as progressive shortness of breath. In the emergency department, vital signs on presentation significant for heart rate of 100, blood pressure 131/75 he was saturating 99% on room air. in addition her was tachypnic and tachycardic. Laboratory results were significant for a WBC of 1.0, H/H of 9.3/ 27.8, platelets 83, blood sugar 257, lactic acid 1.8. Chest x-ray was obtained and was negative for acute process. UA was also negative for infection. He was admitted and was placed on neutropenic precautions. He was started on broad- spectrum antibiotics for neutropenia. oncology was consulted ad recommendations were followed. He remained afebrile until July 01 so antibiotics were stopped. On the night of July 02 he developed fever and tachypnea. Chest x- ray showed right-sided pleural effusion so he was started on IV antibiotics for HAP. 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 Further immunophenotyping and cytogenetics are pending. as per oncology. "Treatment options including chemotherapeutic agents can be considered although given the patient's advanced age and multiple comorbidities he may not be a candidate, nor wish, to undergo further treatment.' I spoke to patient about his wishes. He reported that all his wishes were stated and his living well. i reviewed his living will from his chart Which states if he is in a terminal condition and unable to make his own healthcare decisions or if he is in a permanently unconscious state and there is no reasonable possibility that he will regain the capacity to make informed decisions, then he directs his physician to let him naturally, providing only comfort care. He does not want any life sustaining treatment including CPR He would like to withhold or withdraw artificial aortic neurologically supplied nutrition or hydration provided that he is in an permanently unconscious state He also would like to issue a DNR order and would like no actions to postpone his that He would like comfort care and pain relief i also discussed his wishes and plan of care with his daughter lela pool who is his medical power of defense attorney. code status was changed to DNR/ DNI comfort care palliative was consulted and home hospice was initiated for him and pain medication prescriptions were provided by the palliative care team to the patient. emotional support was provided to patient and family Discharge discussed with: patient, family, case management, human performance consultant - Time Spent with Patient Total time spent providing and/or coordinating discharge services: Greater than 30 minutes (40) - Discharge Medications Prescriptions: LORazepam Oral Conc [Ativan Oral Conc] 0.5 mg PO Q6HR PRN 4 Days #15 mls PRN Reason: anxiety/restlessness Prochlorperazine Maleate [Compazine] 10 mg PO Q6HR PRN #16 tablet PRN Reason: Nausea HYDROcodone/Acet 5/325 mg [Glide 5-325 mg] 1 tab PO Q4H PRN 4 Days #24 tab PRN Reason: Pain MORPHINE SUL Oral CONC [Roxanol Oral Conc] 5 - 10 mg PO Q4H PRN 4 Days #15 oral.syg PRN Reason: pain not relieved by [place]ide Sennosides/Docusate Sodium [Senna Plus] 1 each PO DAILY #4 tablet Home Medications: Aspirin [Adult Low Dose Aspirin EC] 81 mg PO DAILY 02/27/16 [History] Omeprazole [PriLOSEC] 40 mg PO DAILY 02/27/16 [History] Simvastatin [Zocor] 40 mg PO HS 02/27/16 [History] amLODIPine [Norvasc] 10 mg PO DAILY 02/27/16 [History] metFORMIN [Glucophage] 1,000 mg PO QAM 02/27/16 [History] Metoprolol Succinate [Toprol Xl] 50 mg PO DAILY 03/05/18 [History] Nitroglycerin [Nitrostat] 0.4 mg SL DAILY 03/05/18 [History] metFORMIN [Glucophage] 1,000 mg PO HS 03/05/18 [History] GlipiZIDE [Glipizide ER] 10 mg PO BID 06/28/18 [History] Isosorbide MONOnitrate [Isosorbide Mononitrate] 30 mg PO DAILY 06/28/18 [History ] Tamsulosin HCl [Flomax] 0.4 mg PO DAILY 06/28/18 [History] Venlafaxine HCl 50 mg PO DAILY 06/28/18 [History] metFORMIN [Glucophage] 500 mg PO 1200 06/28/18 [History] HYDROcodone/Acet 5/325 mg [Glide 5-325 mg] 1 tab PO Q4H PRN 4 Days #24 tab 07/04 [Rx] LORazepam Oral Conc [Ativan Oral Conc] 0.5 mg PO Q6HR PRN 4 Days #15 mls [Rx] MORPHINE SUL Oral CONC [Roxanol Oral Conc] 5 - 10 mg PO Q4H PRN 4 Days #15 oral.syg 07/04/18 [Rx] Prochlorperazine Maleate [Compazine] 10 mg PO Q6HR PRN #16 tablet 07/04/18 [Rx] Sennosides/Docusate Sodium [Senna Plus] 1 each PO DAILY #4 tablet 07/04/18 [Rx] Allergies/Adverse Reactions: 3 Allergy/AdvReac Type Severity Reaction Status Date / Time Penicillins Allergy Hives Verified 06/28/18 12:14 Date of admission: 06/28/18 23:13 Primary care physician: PCP NONE Consults: 06/30/18 14:23 Consult to Occupational Therapy [CONS] Routine Comment: Evaluate, develop and implement POC Reason for Consult: Generalized weakness, fatigue, pancytopenia Does patient have active BEDREST order?: No Is patient medically & hemodynamically stable?: Yes Patient assessed for mobility or mobilized this visit?: No Consult to Physical Therapy [CONS] Routine Comment: Evaluate, develop and implement POC Reason for Consult: Generalized weakness, fatigue, pancytopenia Does patient have active BEDREST order?: No Is patient medically & hemodynamically stable?: Yes Patient assessed for mobility or mobilized this visit?: Yes Consult to Grinding Supervisor [CONS] Routine Reason for SW Consult: D/C planning 06/30/18 14:37 Consult to Interventional Radiology [CONS] Routine Consulting Provider: Radiology Interventional [facility] Reason for Consult: Bone marrow biopsy to evaluate pancytopenia Call Completed: No 07/02/18 17:49 Consult to Palliative Care [CONS] Routine Comment: Consulting Provider: Palliative Care [place] Reason for Consult: AML with 70% blasts - poor prognosis Call Completed: No 07/04/18 08:03 Consult to Pastoral Services [CONS] Stat Comment: Going home with hospice would like to see wafer abrading machine tender - Constitutional Vitals: Temp Pulse Resp BP Pulse Ox 97.9 F 91 20 115/67 92 07/04/18 06:58 07/04/18 06:58 07/04/18 06:58 07/04/18 06:58 08/30/18 07:35 General appearance: Present: cooperative, A&O X 3, pleasant, no acute distress Exam: General: Well-developed male, lying comfortably in bed in no acute distress, looks ill, pale HEEENT: AT/NC, conjunctiva pallor Skin: Warm and supple Chest: decreased breath sounds and crackles at the right MAL Heart: Normal S1 & S2; rhythmic. No rubs or murmurs. Abdomen: Non-distended, soft and nontender, no organemegally noted, BS +ve Extremities: No clubbing, cyanosis or edema. No calf tenderness. Normal distal pulses. Normal ROM; Neurological: Awake, alert and oriented to person, place and time. No focal deficits. Psych: Affect appropriate. - Patient Status Disposition: Hospice - Home Condition: Serious Functional capacity at discharge: uses cane/walker Overall status at discharge: patient is not back to baseline - Discharge Instructions Follow Up With: Edmundo Hill, CLIENT ANALYST [Non-Partnered Physician] - - Diet and Activity Activity: resume usual activities as tolerated Diet: advance to your usual diet - VTE Documentation of Mechanical Device: Intermittent pneumatic compression device
--- NOTE | 2018-07-04 10:02 | Palliative Progress Note ---
Date of Encounter: 07/04/18 Time of Encounter: 10:00 - Assessment and plan (1) Abdominal pain Current Visit: Yes Status: Acute Assessment and plan: continue Mercer - has utilized x2 last 24 hours. Qualifiers: Abdominal location: unspecified location Qualified Code(s): R10.9 - Unspecified abdominal pain (2) Dyspnea Current Visit: Yes Status: Acute Assessment and plan: Continue supportive oxygen - opioids PRN Qualifiers: Dyspnea type: shortness of breath Qualified Code(s): R06.02 - Shortness of breath; R06.00 - Dyspnea, unspecified; R06.01 - Orthopnea (3) AML (acute myeloid leukemia) Current Visit: Yes Status: Acute Qualifiers: Leukemia Active/Remission status: without remission Qualified Code(s): C92.00 - Acute myeloblastic leukemia, not having achieved remission (4) Advance care planning Current Visit: Yes Status: Acute Assessment and plan: Will be discharge this am with [facility] hosp[facility] care. DME's being set up this am. Prescriptions completed for hospice include: Mercer, Compazine, Roxanol, Ativan concentrate, and Senokot. Spoke with daughter Darlin over phone to confirm plan. D/W Dr. Henson. - Time Spent With Patient Total time spent is greater than 50% in coordination of care (as documented) at patient's floor/unit and/or counseling patient: - Subjective Interval history: Patient awake and alert. Some chills/fever last night. Anxious to go home. Some abdominal discomfort this am - recently took medication. - Constitutional Vitals: Abnormal lab results WBC 0.8 K/mcL (4.3-11.1) L* 07/03/18 07:08 RBC 2.39 M/mcL (4.19-5.50) L 07/03/18 07:08 Hgb 7.6 g/dL (12.9-16.9) L 07/03/18 07:08 Hct 23.0 % (37.5-50.1) L 07/03/18 07:08 RDW 17.3 % (11.5-14.5) H 07/03/18 07:08 Plt Count 73 K/mcL (140-400) L 07/03/18 07:08 Neutrophils # 0.3 K/mcL (1.6-8.9) L 07/02/18 05:07 Lymphocytes # 0.5 K/mcL (0.6-4.6) L 07/02/18 05:07 Nucleated RBCs/100 WBC 2.0 /100 WBC (0) H 06/30/18 02:50 Platelet Estimate Decreased (Normal) L 07/02/18 05:07 Immature Plt Fraction 7.2 % (1.1-6.1) H 07/03/18 07:08 Hypochromasia Present (Not Present) A 06/30/18 02:50 Anisocytosis 1+ (Not Present) A 06/30/18 02:50 Macrocytosis Present (Not Present) A 06/29/18 03:41 Haptoglobin 339 mg/dL (30-200) H 06/28/18 17:35 PT 16.1 Seconds (9.4-12.1) H 06/28/18 17:35 Sodium 132 mEq/L (136-145) L 07/03/18 07:08 Carbon Dioxide 22 mEq/L (23-29) L 07/03/18 07:08 Glucose 164 mg/dL (70-105) H 07/03/18 07:08 POC Glucose 158 mg/dL (70-99) H 07/04/18 07:09 Hemoglobin A1c 7.4 % (-5.6) H 06/29/18 03:41 Calculated Osmolality 279 (280-300) L 07/03/18 07:08 Calcium 8.4 mg/dL (8.6-10.3) L 07/03/18 07:08 Phosphorus 2.4 mg/dL (2.7-4.5) L 07/03/18 07:08 Ferritin 522 ng/mL (20-250) H 06/28/18 17:35 Total Bilirubin 1.1 mg/dL (0.3-1.0) H 06/28/18 12:29 B-Natriuretic Peptide 159 pg/mL (Less than 100) H 06/28/18 12:29 Vitamin B12 130 pg/mL (250-1100) L 06/28/18 17:35 25-OH Vitamin D Total 29 ng/mL (30-80) L 07/03/18 07:08 Folate 19.1 ng/mL (3.0-16.0) H 06/30/18 02:50 Ur Specific [place] 1.030 (1.010-1.025) H 06/30/18 12:11 Urine Protein 100 mg/dL (Neg-Trace) H 06/30/18 12:11 Urine Ketones 15 mg/dL (Negative) H 06/30/18 12:11 Urine Bilirubin Small (Negative) H 06/30/18 12:11 Urine Microscopic WBC 3-5 per hpf (0-3) H 06/30/18 12:11 Ur Squamous Epith Cells Many per lpf (None-Few) H 06/30/18 12:11 Vancomycin Trough 16 mcg/mL (5-10) H 06/30/18 21:52 General appearance: Present: no acute distress - Respiratory Additional comments: Scattered rhonchi throughout - Cardiovascular Cardiovascular exam: Present: tachycardia - GI/Abdominal GI/Abdominal exam: Present: normal bowel sounds, soft - Neurological Exam Neurological exam: Present: alert, oriented X3, strengths equal and symetr throughout - Skin Skin exam: Present: dry, pallor, warm Palliative Quality Palliative Quality: Screen for Code Status: Yes, Screen for Goals of Care: Yes, Screen for Pain: Yes, If Pain Regimen Started, Initiate Bowel Regimen: Yes, Screen for Nausea/Vomitting: Yes Code Status: 07/03/18 08:15 DNR [Resuscitation Status: Active] [RES] Routine Comment: Resuscitation Status: [id number] - Labs CBC & Chem 7: 07/03/18 07:08 07/03/18 07:08 Labs: Laboratory Results - last 24 hr 07/03/18 07/03/18 07/03/18 07:08 07:24 11:27 POC Glucose 163 H 312 H 25-OH Vitamin D Total 29 L 07/03/18 07/03/18 07/04/18 16:07 21:37 07:09 POC Glucose 186 H 182 H 158 H 25-OH Vitamin D Total - ABG Interpretation ABG results: PT/INR, D-dimer PT 16.1 Seconds (9.4-12.1) H 06/28/18 17:35 Consult Discharge Plan - Plan Referrals: Edmundo Hill, [employer] [Non-Partnered Physician] - Prescriptions: LORazepam Oral Conc [Ativan Oral Conc] 0.5 mg PO Q6HR PRN 4 Days #15 mls PRN Reason: anxiety/restlessness Prochlorperazine Maleate [Compazine] 10 mg PO Q6HR PRN #16 tablet PRN Reason: Nausea HYDROcodone/Acet 5/325 mg [[place] 5-325 mg] 1 tab PO Q4H PRN 4 Days #24 tab PRN Reason: Pain MORPHINE SUL Oral CONC [Roxanol Oral Conc] 5 - 10 mg PO Q4H PRN 4 Days #15 oral.syg PRN Reason: pain not relieved by [place] Sennosides/Docusate Sodium [Senna Plus] 1 each PO DAILY #4 tablet
--- NOTE | 2018-07-04 10:08 | Physician Discharge Referral ---
<Leslye Rivas - Last Filed: 07/04/18 10:06> Home Health/Hosp Referral Info Transfer to: Hospice Provider in Charge Post Discharge: Coding And Reimbursement Specialist - Diagnosis (1) AML (acute myeloid leukemia) Status: Acute - Respiratory Orders Oxygen / L per min (2-4 LPM) Smoking Cessation: Smoking cessation has been advised. For more information, call the [place] Tobacco Quit Line at 3-070-QQYF-NOW. - Diet/Nutrition Diet/Nutrition Orders: Regular - Activity Activity Orders: Up ad amy - Services Needed Following services are medically necessary services: Nursing, Home Health Aide - Transfer Medications Prescriptions: LORazepam Oral Conc [Ativan Oral Conc] 0.5 mg PO Q6HR PRN 4 Days #15 mls PRN Reason: anxiety/restlessness Prochlorperazine Maleate [Compazine] 10 mg PO Q6HR PRN #16 tablet PRN Reason: Nausea HYDROcodone/Acet 5/325 mg [[place] 5-325 mg] 1 tab PO Q4H PRN 4 Days #24 tab PRN Reason: Pain MORPHINE SUL Oral CONC [Roxanol Oral Conc] 5 - 10 mg PO Q4H PRN 4 Days #15 oral.syg PRN Reason: pain not relieved by [place] Sennosides/Docusate Sodium [Senna Plus] 1 each PO DAILY #4 tablet Home Medications: Omeprazole [PriLOSEC] 40 mg PO DAILY 02/27/16 [History] Simvastatin [Zocor] 40 mg PO HS 02/27/16 [History] amLODIPine [Norvasc] 10 mg PO DAILY 02/27/16 [History] metFORMIN [Glucophage] 1,000 mg PO QAM 02/27/16 [History] Metoprolol Succinate [Toprol Xl] 50 mg PO DAILY 03/05/18 [History] Nitroglycerin [Nitrostat] 0.4 mg SL DAILY 03/05/18 [History] metFORMIN [Glucophage] 1,000 mg PO HS 03/05/18 [History] GlipiZIDE [Glipizide ER] 10 mg PO BID 06/28/18 [History] Isosorbide MONOnitrate [Isosorbide Mononitrate] 30 mg PO DAILY 06/28/18 [History ] Tamsulosin HCl [Flomax] 0.4 mg PO DAILY 06/28/18 [History] Venlafaxine HCl 50 mg PO DAILY 06/28/18 [History] metFORMIN [Glucophage] 500 mg PO 1200 06/28/18 [History] HYDROcodone/Acet 5/325 mg [[place] 5-325 mg] 1 tab PO Q4H PRN 4 Days #24 tab 07/04 [Rx] LORazepam Oral Conc [Ativan Oral Conc] 0.5 mg PO Q6HR PRN 4 Days #15 mls [Rx] MORPHINE SUL Oral CONC [Roxanol Oral Conc] 5 - 10 mg PO Q4H PRN 4 Days #15 oral.syg 07/04/18 [Rx] Prochlorperazine Maleate [Compazine] 10 mg PO Q6HR PRN #16 tablet 07/04/18 [Rx] Sennosides/Docusate Sodium [Senna Plus] 1 each PO DAILY #4 tablet 07/04/18 [Rx] Allergies/Adverse Reactions: 3 Allergy/AdvReac Type Severity Reaction Status Date / Time Penicillins Allergy Hives Verified 06/28/18 12:14 Certification: Further, I certify that my clinical findings support that this patient is homebound (i.e. absences from home require considerable and taxing effort and are for medical reasons or jain services or infrequently or short duration when for other reasons) because: Homebound Reason: Patient requires assistance of a person or device to safely leave home, Leaving home requires considerable and taxing effort due to condition Attestation: My signature below is to certify that this patient is under my care and that I, or nurse practitioner, or a physician's logistics assistant working with me, has a face-to -face encounter with this patient. <Priyanka Henson - Last Filed: 07/04/18 10:12> - Diagnosis (1) Neutropenic fever Status: Suspected (2) AML (acute myeloblastic leukemia) Status: Acute (3) Goals of care, counseling/discussion Status: Acute (4) Hematoma of occipital surface of head Status: Acute (5) Pancytopenia Status: Acute (6) Sepsis Status: Ruled-out (7) Weakness Status: Acute (8) Diabetes mellitus Status: Chronic (9) Hypertension Status: Chronic (10) Hyperlipidemia Status: Chronic (11) GERD (gastroesophageal reflux disease) Status: Chronic (12) CAD (coronary artery disease) Status: Chronic (13) DVT prophylaxis Status: Acute (14) Pleural effusion Status: Acute - Respiratory Orders Smoking Cessation: Smoking cessation has been advised. For more information, call the [place] Tobacco Quit Line at 7-841-RIUI-NOW. Certification: Further, I certify that my clinical findings support that this patient is homebound (i.e. absences from home require considerable and taxing effort and are for medical reasons or jain services or infrequently or short duration when for other reasons) because: Attestation: My signature below is to certify that this patient is under my care and that I, or nurse practitioner, or a physician's logistics assistant working with me, has a face-to -face encounter with this patient.
[2018-07-04 10:41] VITALS: BP 118/63
[2018-07-04] MEDS: Budesonide/Formoterol 80/4.5 MDI IH SCH (10:46)
== END 2018-07-04 12:20 | disposition hospice, home (50) | DRG 835 ==
LOC: 3ANU 11:42 → EMEROOARM 11:42 → 3ANU 20:08 → SUATTDRO 23:13
PROVIDERS: ADMIT Internal Medicine; ATTEND Internal Medicine